=== PATIENT | male | born 1945 ===

== ENCOUNTER 2016-10-07 14:08 | Inpatient (IN) | payer OTHER ==
[~2016-10-07] VITALS: Ht 187.9 cm; Wt 99.8 kg
--- NOTE | ~2016-10-07 | PR ---
[place], [place] PROGRESS NOTE NAME: [id number] #: [id number] ROOM: 310 DOCTOR: FABI RAYA MD BIRTHDATE: [birth year] DOS: 10/10/2016 CHIEF COMPLAINT: "I didn't sleep well last night. I never do." SUMMARY OF THE VISIT: The patient was interviewed as he sat in the dining area, watching television. He engaged readily in conversation. He does still seem to be very flat and blunted and rather matter of fact, he reports that he continues to have ongoing sleep problems with difficulty falling asleep and significant sleep continuity disturbance. Appetite has been fairly good and he denies any medication side effects. MENTAL STATUS: He is alert and oriented with some time gaps. Mood does seem to be depressed. Affect is flat, blunted, and constricted. There is no hypomania or jennifer. There are no auditory or visual hallucinations, delusions or paranoia. Short, intermediate and snf memory are relatively intact. PLAN: I will maintain Remeron at 15 mg at bedtime, consider increasing this to 22.5 mg daily. I will increase Latuda from 40 to 80 mg at bedtime to augment the effectiveness of the Remeron and to further aid sleep and stabilize mood. We will engage in individual and ugarte milieu activity with the ultimate plan to return home when stable. FABI RAYA MD CM:PNTRANS 1102 FABI RAYA MD 10/10/16 1209 interface
--- NOTE | ~2016-10-07 | DS ---
[place], [place] DISCHARGE SUMMARY NAME: SALOME VARGAS [facility] #: [id number] UNIT #: [id number] ROOM: 310 DOCTOR: KATERINE PARSON BIRTHDATE: [birth year] DOS: 10/15/2016 CHIEF COMPLAINT: "I think someone is jerking me around." HISTORY OF PRESENT ILLNESS: He is a 71-year-old male who came into the hospital after he was transferred from [facility] for paranoid and delusional thought. His brother brought him in to [facility] because of those paranoid and delusional thoughts. He believed that people were trying to hurt him in his apartment as well as hurt his dog. He had not been taking care of himself, not doing his activities of daily living, not eating or sleeping well. He lived alone in an apartment and it was found to be in terrible condition. Adult Protective Services were consulted and the belief was that he should be removed from his home. It had been 2 years since he had been at the doctors and he was just not taking care of himself at all at home. PAST MEDICAL HISTORY: Bipolar disorder, anxiety, degenerative joint disease, depression, hypertension, hyperlipidemia, osteoarthritis and schizoaffective disorder. SUMMARY OF HOSPITAL COURSE: On admission, he was started on Invega for his psychosis and Remeron to improve his appetite and sleep as well as treat his underlying depression. Initially, he was noncompliant with his medications, so the Invega was discontinued and he was started on Latuda to augment his Remeron. Since he has been on the unit, he has been eating well. His mood has been euthymic. He has become a little anxious and paranoid since he was not discharged when he initially was supposed to be discharged. His mood has improved since knowing that he is going to be returning to his home. His sleep also improved greatly with titration of the Remeron. He had a Podiatry consult for complaints of pain in his feet and elongated and thick nails and that was treated by Podiatry. MENTAL STATUS AT DISCHARGE: He is alert and oriented. He does have some time gaps. His mood now is euthymic. His affect is appropriate. He has no jennifer or hypomania. He is having no hallucinations, delusions and actually his paranoid and delusional thoughts have improved just with the fact that he is being discharged as he was told. DISPOSITION: He is going to be discharged to home. He was denied by his insurance for a half-way visit. His prescription will be called in to the pharmacy by the nurse on the U Unit. He is being discharged home in psychiatrically stable condition. [place], [place] DISCHARGE SUMMARY NAME: SALOME VARGAS UNIT #: [id number] ROOM: 310 DOCTOR: KATERINE PARSON BIRTHDATE: [birth year] Katerine Parson NP CM:THEODORE [phone] [id number] KATERINE PARSON 10/15/161853 interface
--- NOTE | ~2016-10-07 | PR ---
[place], [place] PROGRESS NOTE [id number] #: [id number] ROOM: 310 DOCTOR: FABI RAYA MD BIRTHDATE: [birth year] DOS: 10/11/2016 INTERVAL NOTE CHIEF COMPLAINT: "I sleep better last night, can I go home soon." SUMMARY OF THE VISIT: The patient was interviewed as he was sitting on the edge of his bed in his room. I later walked him down to the dining area. He engaged readily in conversation and did report that he did sleep better last night. In fact, he states that he slept soundly through the entire night and woke up feeling a little tired, but overall much better. He is very fixated on being able to go home soon and is hopeful that this will happen. He denies depressive symptoms at the present time. There is no jennifer or psychosis noted. MENTAL STATUS: He is alert and oriented with some mild time gaps. Mood does seem to be strongly trending towards euthymia and affect is much more appropriate. There are no symptoms of hypomania or jennifer. There are no auditory or visual hallucinations. No delusions, no paranoia. Memory is relatively intact. PLAN: I will maintain the current dosing of the Latuda and the Remeron. Will continue to engage in individual and ugarte milieu activity with the ultimate plan to return to the least restrictive environment when psychiatrically stable. FABI RAYA MD CM:PNTRANS [id number] FABI RAYA MD 10/11/16 1233 interface
--- NOTE | ~2016-10-07 | CON ---
[place], [place] REPORT OF CONSULTATION NAME: SALOME VARGAS [facility] #: [id number] UNIT #: [id number] ROOM: 310 DOCTOR: SALOME SHELTON DPM BIRTHDATE: [birth year] DOS: 10/08/2016 SUBJECTIVE: The patient is a 71-year-old male. CHIEF COMPLAINT: Elongated painful thickened nails of both feet. PAST MEDICAL HISTORY: Schizoaffective disorder, history of degenerative joint disease, hypertension, hyperlipidemia, osteoarthritis. PHYSICAL EXAMINATION: EXTREMITIES: Lower extremity examination: Pedal pulses diminished both lower extremities, decreased skin temperature. Decreased hair growth, nail thickening, pigmentary discoloration. Temperature changes and edema, bilateral lower extremity, crumbly thickened yellow nails 1 through 5 bilateral foot with incurvated nail borders of bilateral hallux. No signs of infection upon debridement. ASSESSMENT: Peripheral vascular disease onychomycosis, onychocryptosis first toe bilateral. PLAN: Evaluation and management. Debrided nails 1 through 5 bilateral; debrided, incurvated nail borders first toe bilateral. Thank you for kind consultation. SALOME SHELTON DPM CM:CONSTR:REPORT OF CONSULTATION 1502 10/08/16 2159 interface
--- NOTE | ~2016-10-07 | WRIGHTHP ---
[place], [place] PATIENT HISTORY AND PHYSICAL EXAM NAME: SALOME VARGAS [facility] #: [id number] UNIT #: [id number] ROOM: 310 DOCTOR: FABI RAYA MD BIRTHDATE: [birth year] DOS: 10/08/2016 INITIAL PSYCHIATRIC EVALUATION CHIEF COMPLAINT: "I guess I was getting more paranoid." HISTORY OF PRESENT ILLNESS: This is a 71-year-old male who was sent from initially on an involuntary basis, but then was later signed in voluntary by his power of credit cashier who is his brother. The patient had presented there increasingly paranoid and delusional with poor ADLs. He was found in his home in deplorable conditions. He had not been eating well nor has he been sleeping. He has not been attending to his ADLs. He was covered in critical access hospital. He was increasingly paranoid, believing that people were out to get him and was very anxious and on edge. He was very irritable as well while at [place]. He subsequently sent here for further stabilization to rule out organic factors, to engage in individual and ugarte milieu activity, planning then to return to the least restrictive environment when psychiatrically stable. PAST MEDICAL HISTORY: Remarkable for prior psychiatric admission approximately 5 years ago. He also has a history of degenerative joint disease, hypertension, hyperlipidemia, osteoarthritis. MENTAL STATUS EXAMINATION: This morning, the patient is alert and oriented to person and place, but not necessarily time. Mood does seem to be somewhat down and depressed. Affect is flat and blunted with constricted range. He does positively endorse paranoia and even now feels that he is somewhat at risk for harm. He is very, however, anxious to return home. There was no jennifer or hypomania noted. Memory seems relatively intact. DIAGNOSIS: Schizoaffective disorder. PLAN: I have already started him on Invega 6 mg a day. He received the first dose yesterday upon admission to the unit and he will then get his doses in the morning. Given the fact that there does seem to be a depressive component as well, I will start him on Remeron 15 mg at bedtime. We will engage him in individual and ugarte milieu activity. We will determine whether or not he can safely return home or if he needs secondary placement. We will discharge then when stable. [place], [place] PATIENT HISTORY AND PHYSICAL EXAM NAME: SALOME VARGAS UNIT #: [id number] ROOM: [facility] DOCTOR: FABI RAYA MD BIRTHDATE: [birth year] FABI RAYA MD CM:HISPHYS:PATIENT HISTORY AND PHYSICAL EXAMINATION [id number] FABI RAYA MD 10/08/16 1355 interface
--- NOTE | ~2016-10-07 | DS ---
[place], [place] DISCHARGE SUMMARY NAME: SALOME VARGAS [facility] #: [id number] UNIT #: [id number] ROOM: 310 DOCTOR: KATERINE PARSON BIRTHDATE: [birth year] DOS: 10/13/2016 CHIEF COMPLAINT: "I am ready to go home." HISTORY OF PRESENT ILLNESS: He is a 71-year-old male who came in to the hospital when he was transferred from [facility] for being paranoid and having delusional thoughts. He was brought in to [place] by his brother because of his paranoia and delusional thoughts. He believed that people were trying to hurt him in his apartment as well as hurt his dog. He had not been taking care of himself, not doing his ADLs, not eating or sleeping well. The patient does live alone in an apartment with his dog. His house was in horrible condition. Adult Protective Services was consulted when he came in as far as removing him from his thoughts. It had been 2 years since he had seen a doctor and he was just overall generally not taking care of himself. PAST MEDICAL HISTORY: He has a history of bipolar disorder, anxiety, degenerative joint disease, depression, hypertension, hyperlipidemia, osteoarthritis and schizoaffective disorder. SUMMARY OF HOSPITAL COURSE: When he came in to the Behavioral Health Unit, he was started on Invega for his psychosis and Remeron to improve his appetite, sleep and treat his underlying depression. Initially when he was on the unit, he was noncompliant with his medication. The Invega was discontinued and he was started on Latuda to augment his Remeron. He has been eating well. His mood has been euthymic. Affect appropriate. His sleep much improved with titration of the Remeron. While on the unit, he did also have a podiatry consult for complaints of pain in his feet that get elongated nails and that was taking care of while he was on the unit by Podiatry. MENTAL STATUS AT DISCHARGE: He is alert and oriented. He does have some time gaps. Mood is euthymic. Affect is appropriate. There is no jennifer or hypomania. He is having no hallucinations, delusions or paranoia at the time of discharge. DISPOSITION: He will be discharged to a long-term care facility. His prescriptions were printed and will be sent with him on discharge. He is psychiatrically stable. [place], [place] DISCHARGE SUMMARY NAME: SALOME VARGAS UNIT #: [id number] ROOM: 310 DOCTOR: KATERINE PARSON BIRTHDATE: [birth year] Katerine Parson NP CM:DISCHARG [phone] KATERINE PARSON 10/13/162029 interface
[2016-10-07 16:56] VITALS: BP 139/86
--- NOTE | 2016-10-07 18:44 | NUR ---
SALOME VARGAS a 71 year old M admitted via stretcher from the OUTPATIENT as a voluntary admission per poa his bother sangeeta vargas Arrived on unit at 1620. ALLERGIES: dilantin, fish, pinapple. Vital signs are: 97.5-97-18 139/86. The client signed the following forms with stated understanding: Authorization For The Release of Medical Information, Clothing List, Consent to Voluntary Admission and Hospitalization, Consent and Release Forms/Receipt of Rights, Acknowledgement of Advance Directive Information, Behavioral Health Consent Form, and Informed Consent of Medications. Admitted under the services of FABI Keita MD. A search was conducted and hazardous articles were removed. Client was oriented to the unit. STEVEN ALDRIDGE pt came in my ambulance pink slipped from [place]. pt had poa paperwork . dr. aguirre stated to let poa sign pt in voluntary. pt came in irritated, confused, in a hospital gown, pt came in with a watch, and $874.10, and snuff babita patton was putin lockbox. pt demanding to leave , needs to get home with his dogs, pt is dishelved, not attending adl's
[2016-10-07 19:34] VITALS: BP 122/76
--- NOTE | 2016-10-07 19:41 | NUR ---
CALLED RESIDENT NUMBER [phone] PRICE, UPDATED HIM ON LAB WANTING TO KNOW IF IT WAS OKAY TO CHANGE CERTAIN LABS FOR AM SINCE IT IS REQUIRED TO FAST FIRST, DR. PRICE STATED IT WAS OKAY TO CHANGE THEM FOR THE AM, NO OTHER ORDERS RECIEVED.
--- NOTE | 2016-10-07 20:24 | NUR ---
PATIENT REFUSED LABS AT THIS TIME AFTER X3 ATTEMPTS AND EDUCATION, PATIENT STATED HE WILL LET IT BE DONE IN AM. LAB STATED THEY WILL BE BACK IN AM. NO SIGNS OR SYMPTOMS OF DISTRESS NOTED.
--- NOTE | 2016-10-08 01:32 | NUR ---
24 HOUR CHART CHECK COMPLETED.
--- NOTE | 2016-10-08 05:32 | NUR ---
PATIENT OBSERVED ON Q 15 MIN CHECKS TO HAVE SLEPT THROUGHOUT THE NIGHT WITH NO AWAKENINGS. PATIENT CURRENTLY IN ROOM TALKING TO SELF STATING "I JUST WANT TO GO HOME, I DONT WANT TO BE HERE". DURING 1:1 PATIENT STATED THAT HE "FEELS ANXIOUS" AND "I JUST WANT TO GO HOME AND SEE MY DOG LUIS, I DONT LIKE BEING CLOSED UP HERE". PATIENT PROVIDED WITH EMOTIONAL SUPPORT AND ALSO PROVIDED WITH OPTIONS TO HELP RELIEVE ANXIETY INCLUDING PRN MEDICATION, PATIENT STATED "I DONT WANT ANYTHING RIGHT NOW BUT I WILL LET YOU KNOW IF I DO, IM JUST GOING TO LAY IN BED FOR RIGHT NOW". NO OTHER PHYSICAL COMPLAINTS VOICED. CURRENTLY IN BED WITH EYES OPEN, RESPIRATIONS EASY AND REGULAR. NO SIGNS OR SYMPTOMS OF DISTRESS NOTED. WILL MONITOR FOR INCREASED AGITATION AND ANXIETY.
[2016-10-08 07:54] LABS: ALBUMIN 3.7 gm/dl (3.1-4.5); ALKALINE PHOSPHATASE 95 U/L (45-117); BUN 19 mg/dl (7-24); CHLORIDE 107 mmol/L (98-107); CHOLESTEROL 179 mg/dL (<200); HDL CHOLESTEROL 44 mg/dl (40-60); LDL CHOLESTEROL 116 mg/dL (9-159); POTASSIUM 4.1 mmol/L (3.5-5.1); SGOT/AST 38 IU/L (3-35); SGPT/ALT 30 U/L (12-78); SODIUM 141 mmol/L (136-145); TOTAL PROTEIN 7.9 gm/dL (6.4-8.2); TRIGLYCERIDES 94 mg/dl (<150); VLDL CHOLESTEROL 19 mg/dL (6-40)
[2016-10-08 08:00] VITALS: BP 123/74
--- NOTE | 2016-10-08 08:37 | NUR ---
PHYSICAL THERAPY PAtient evaluated on 3, full evaluaion to follow. Continue with PT as pe prlmnaof cre with fall and acute debility precautions., MAy require SNF for impaired mobility versus assisted living wtth PT. PAtient is high complexity via chart review, tests and evaluation : 69566. Thank you for this referral. January Hernandez.,PT
--- NOTE | 2016-10-08 10:41 | NUR ---
DR SHELTON OFFICE NOTIFIED OF NEW CONSULT FOR PODIATRY CONSULT.
--- NOTE | 2016-10-08 11:17 | NUR ---
PT did not attend RT Group/Exercise this morning. PTasked what was planned for group. Staff stated we were starting with mild exercise. PT stated "I get enough exercise walking in the [place]." This staff member tried encouraging PT explaining the benefits of leaving his room and socializing but PT still refused.
--- NOTE | 2016-10-08 12:20 | NUR ---
patient stay has been authorized for 7 days, nr 10/13/16, authorization number is [id number]
--- NOTE | 2016-10-08 13:51 | NUR ---
Attempted to do assessment with PT. PT answered first 2 questions then started halucinatiing. PT talked of people disapearing from his home then reappearing again. PT talked of planes and helicopters flying overhead when his evaluator was there. PT doesnt understand why they are coming around because he doesnt own any computers. PT could not be redirected,ended assessment
--- NOTE | 2016-10-08 14:51 | NUR ---
Kailyn from [employer] returned the SWS p.c. from earlier. She states that she had met pt. once when the "neighbors" had called [employer] because the pt. had been walking around outside early in the morning and late at night, asking them "are you going to hurt me"? Kailyn states that she is in the process of investigating this case and is not sure yet, if pt. home is safe enough for him to return to. Kailyn to call back on Wednesday to discuss further pt. d/c plans with RODOLFO Vasquez. Kailyn further states that the [employer] do not decide whether or not a pt. is safe to return home, but that they would let us know concerns if any of pt. returning to his home environment. Kana and this SWS both agree that if pt. is to return home that he will need In-Home services to help monitor his medications. A referral for both NH and In-Home services to be made. Kailyn states that pt dog is being cared for by his brother and LILIANE.
--- NOTE | 2016-10-08 14:53 | NUR ---
TREATMENT TEAM WAS HELD WITH THE FOLLOWING TO DISCUSS CARE: DR. RAYA, MEDICAL STUDENT, AT, RN, AND SW. WANTS SOMEONE TO CHECK ABOUT PT'S SOG LUIS TO MAKE SURE PT'S BROTHER IS TAKIG CARE OF IT.
--- NOTE | 2016-10-08 14:57 | NUR ---
Kailyn from [employer] did question where the schizoaffective d/o orginated from. She states the only hx of possible [place] she is aware of is that pt. had been hospitalized a few years ago at a [facility] in [place] for a "mental" breakdown. pt. reportedly has no family other than his brother, never been , no children, etc. Kailyn did also state that pt. had discussed with her his feelings of lonliness and feeling depressed.
--- NOTE | 2016-10-08 15:14 | NUR ---
Upon chart review, [facility] did urine, Nurse Smith read the result, urine was negative for UTI.
--- NOTE | 2016-10-08 15:39 | NUR ---
PT did not attend RT Group/Riddles,Choices this afternoon. PT stated he wasnt interested in any activity. This staff tried to encourage PT to join but PT continually refused. PT came in to room where activity was being held about half way through. I asked PT again to join group but again PT stated he was not interested
--- NOTE | 2016-10-08 15:46 | NUR ---
EARL/KELVIN Duque CM REQUESTED THAT CM BE NOTIFIED WHEN A PRE AUTH IS OBTAINED PRIOR TO ADMISSION. SW INFORMED THAT DIRECTOR SENT OUT AN EMIAL INFORMING STAFF OF THIS. RODOLFO WILL INFORM MARLINE THAT IT WAS NOT DONE.
--- NOTE | 2016-10-08 18:21 | NUR ---
PATIETN IS ALERT TO PERSON AND PLACE, ABLE TO VOICE NEEDS. SHORT TERM MEMORY DEFICITS NOTED. MOOD IS ANXIOUS AND IRRATIBLE AT TIMES. THOUGHT PROCESS IS CONFUSED WITH PARANOIA. WORRIED THAT SOMETHING IS GOING TO HAPPEN TO HIS FAMILY AND PET DOG. ISOLATIVE AT TIMES. AMBULATORY THOROUGHOUT THE UNIT. VERBAL CUEING WITH DRESSING AND GROOMING. CONTINENT OF BOWEL AND BLADDER. DENIES ANY HALLUCINATION AND DELUSION, PAIN OR DISCOMFORT. MEDICATION COMPLIANT. Q 15 MINUTE SAFETY CHECKS.
[2016-10-08 20:20] VITALS: BP 160/76
--- NOTE | 2016-10-09 03:17 | NUR ---
PT UP AND DOWN OUT OF BED, RESTLESS, YELLING AT UNSEEN OTHERS AT THE WINDOW. PT PACING HALLWAYS. 1:1 INEFFECTIVE AT THIS TIME. PRN ATIVAN GIVEN PER ORDER. WILL MONITOR FOR EFFECTIVENESS OF MEDICATION.
--- NOTE | 2016-10-09 04:17 | NUR ---
PRN EFFECTIVE. PT LYING IN BED RESTING QUIETLY WITH EYES CLOSED.
--- NOTE | 2016-10-09 04:36 | NUR ---
24 HR chart check completed.
--- NOTE | 2016-10-09 06:00 | NUR ---
PT SLEPT PAST 0401. MEDICATION COMPLIANT. NO S/S OF DISTRESS NOTED. NO C/O PAIN. PT IS RESTING AT THIS TIME WITH EYES CLOSED. PRN REMAINS EFFECTIVE. WILL CONTINUE TO MONITOR PT FOR EFFECTIVENESS OF MEDICATION AND WILL REASSESS PT BEHAVIOR WHEN AWAKE. SEE [facility] FLOWSHEET FOR SPECIFIC MONITORING.
--- NOTE | 2016-10-09 09:28 | NUR ---
TREATMENT TEAM WAS HELD TO DISCUSS CARE WITH THE FOLLOWIG: DR. RAYA,NURSE PRACTIONER, MEDICAL STUDENT, AT, RN, AND SW. DR. RAYA IS RECOMMENDING A SENIOR CARE OR ASSISTED LIVING. PENDING DISCHARGE NEXT WEEK.
--- NOTE | 2016-10-09 11:10 | NUR ---
PT was in room during RT Goup/Discussion but refused to participate. PT sat off on his own and colored pictures. PT was encouraged to join in on goals and discussion and PT stated he doesnt do stuff like that
--- NOTE | 2016-10-09 11:15 | NUR ---
PHYSICAL THERAPY Collin seen this AM 1:1 for her therapy gait. Pt was up in the day room said he would try. Transfer sit/stand CGA X 1, gait total 145' X 1, no LOB and verbal cueing for gait, balance safety and MIN RADIATOR REPAIRER X 1. Pt wanting to go back to his room and lay down at this time, treatment time 15 min. DEBBY LOPEZ BLACK TOP RAKER.
--- NOTE | 2016-10-09 11:46 | NUR ---
PT ENCOURAGED TO MAKE STAFF AWARE BEFORE URINATING SO THAT WE CAN COLLECT A SPECIMEN.
--- NOTE | 2016-10-09 14:35 | NUR ---
PT was in room for awhile during RT Group/games. PT refuse to join us in a game of [employer] PT choose to sit at another table and color. Tried to encourage PT to sit at the same table as we were but PT refused. PT is not social with anyone. PT is withdrawn from others and will only speak when spoken to.
--- NOTE | 2016-10-09 16:07 | NUR ---
PT AGAIN REMINDED TO MAKE STAFF AWARE WHEN HE NEEDS TO URINATE IN ORDER TO COLLECT URINE SPECIMEN.
[2016-10-09 17:43] LABS: BILIRUBIN NEGATIVE (NEGATIVE); BLOOD TRACE-LYSED (NEGATIVE); CLARITY SL CLOUDY (CLEAR); COLOR YELLOW (YELLOW); GLUCOSE NEGATIVE (NEGATIVE); KETONE NEGATIVE (NEGATIVE); LEUKO ESTERASE NEGATIVE (NEGATIVE); NITRITE NEGATIVE (NEGATIVE); SPECIFIC GRAVITY >= 1.030 (1.005-1.030); UROBILINOGEN 0.2 E.U./dl (0.2-1.0)
[2016-10-09 17:52] LABS: BACTERIA 2+
--- NOTE | 2016-10-09 18:30 | NUR ---
PT'S BEHAVIOR THIS SHIFT HAS BEEN FOR THE MOST PART CALM AND COOPERATIVE. HIS DEMEANOR IS ISOLATIVE AND WITHDRAWN. PATIENT BECAME IRRITABLE AND AGITATED WHEN HIS AND SON VISITED TODAY DEMANDING THAT THEY TAKE HIM HOME. PT'S FAMILY MEMBERS SPOKE WITH ALONZO (FARM EQUIPMENT OPERATOR) REGARDING DISCHARGE PLANS BEFORE THEY LEFT THEIR VISIT. AFTER THE VISIT, PT BECAME CALM AND ISOLATIVE AGAIN. MANY PROMPTS NEEDED TO GET PATIENT TO PROVIDE THIS RN WITH A URINE SPECIMEN BUT HE ULTIMATELY DID PROVIDE THIS RN WITH THE URINE NEEDED TO TEST. PT SHOWED NO OVERT SIGNS OR SYMPTOMS OF DELUSIONS AND HALLUCINATION THIS SHIFT. HIS APPETITE HAS BEEN GOOD. PT DOES NOT INITIATE COVERSATIONS WITH PEERS OR STAFF BUT IS ABLE TO MAKE HIS NEEDS KNOWN.
[2016-10-09 20:00] VITALS: BP 152/59
--- NOTE | 2016-10-09 21:33 | NUR ---
UPON ATTEMPTING TO ADMINISTER PT PM MEDICATIONS, NURSE NOTICED THAT PATIENT HAD REMOVED HIS ID BAND. PT BEGAN BECOMING DEFENSIVE, LINE OF QUESTIONING IMMEDIATELY STOPPED. PT RETURNED TO ROOM HURRIDLY. NURSE ALLOWED FOR PATIENT TO COLLECT HIS THOUGHTS AND DESCALATE. NURSE SAT DOWN WITH PATIENT AND ASKED HIM WHAT WAS BOTHERING HIM. PT BEGAN DESCRIBING TO NURSE PERSECUTORY DELUSIONS OF THE GOVERNMENT BEING OUT TO GET HIM. HE SEES VISIONS OF SOMEONE WITH AN IDENTICAL TRUCK COMMITTING CRIMES, HIS NEIGHBORS DISSAPEARING, AND HELICOPTER DOING ROUNDS OVER HIS HOUSE. ATTEMPTED TO REORIENT PATIENT DISCUSSING HOW HIS DELUSIONS AREN'T BASED IN REALITY. PT ABLE TO DESCALATE AND VERBALIZED LIMITED UNDERSTANDING REGARDING THE DELUSIONAL THOUGHT PROCESSES.
--- NOTE | 2016-10-10 04:59 | NUR ---
PT EXHIBITED INCREASE IN DELUSIONAL THOUGHT PROCESSES FROM PREVIOUSLY REPORTED SHIFT. PT ABLE TO DESCALATE HIMSELF WHEN HIS DELUSIONS BECAME OVERWHELMING. PT DENIES SI/HI. PT DENIES ACTIVE HALLUCINATIONS/VOICES SPEAKING TO HIM. PT MEDICATION COMPLIANT. REFER TO FLOWSHEET FOR ADDITIONAL INFO.
--- NOTE | 2016-10-10 06:12 | NUR ---
PT SLEPT >8HRS WITH NO INTERRUPTIONS
[2016-10-10 08:04] VITALS: BP 126/63
--- NOTE | 2016-10-10 17:34 | NUR ---
Collin has been noted to exhibit some paranoia and suspiciousness of others. He stated during 1:1 interaction with staff that he thinks "people are trying to set me up." Not receptive to reality orientation @ this time. He also voiced some paranoid ideations when he found a hat in the bathroom for a peer. When explanation was provided, he was unreceptive and voiced paranoid ideas that others were again, "setting me up." Mood has been noted to be depressed with some underlying anger noted. Noted talking to himself @ times when walking in hallway. Appetite is good. Energy level is moderate. Though he is noted to be generally limited in conversation with peers, he was observed speaking to a peer during meal time this evening. Dr. Chery in to see him today and orders were received to increase Latuda to 80 mg po q hs. Refer to [facility] flowsheet for specific monitoring.
[2016-10-10 20:19] VITALS: BP 148/50
--- NOTE | 2016-10-11 03:32 | NUR ---
24HR CHART CHECK COMPLETE
--- NOTE | 2016-10-11 05:25 | NUR ---
PT SLEPT >8HRS WITH NO INTERUPTIONS DURING THIS SHIFT. PT DENIED ANY HALLUCINATIONS/DELUSIONS, SI/HI. REPORTED HAVING A BETTER DAY, YET WAS RELUCTANT TO EXPAND UPON WHAT MADE THE DAY "BETTER". MEDICATION COMPLIANT. REFER TO FLOWSHEET FOR ADDITIONAL INFO.
[2016-10-11 08:15] VITALS: BP 128/73
--- NOTE | 2016-10-11 19:07 | NUR ---
Mood is depressed. Continues to exhibit some suspiciousness of staff and continues to voice a belief that others are out to "set me up." He is not receptive to reality orientation. Collin generally keeps to himself and offers little interaction with others. He denies any sensory disturbances when questioned. Energy level low to moderate and appetite is good. No complaints voiced. Refer to [facility] flowsheet for specific monitoring.
[2016-10-11 20:00] VITALS: BP 148/70
--- NOTE | 2016-10-11 22:04 | NUR ---
P-#1-- SCHIZOAFFECTIVE DISORDER--PARANOIA I- DISCUSS COPING SKILLS, DISCUSSED DAYS EVENTS, MEDICATE PER ORDERS P- NO PARANOIA CLIENT UP IN DININGROOM WATCHING TV DURING SNACKS. STATES DAY WAS GOOD AND DENIED ANY PROBLEMS AT THAT TIME. MEDICATION COMPLIANT GAIT STEADY
--- NOTE | 2016-10-12 04:14 | NUR ---
24 HR chart check completed.
[2016-10-12 06:54] VITALS: BP 135/58
--- NOTE | 2016-10-12 07:55 | NUR ---
PHYSICAL THERAPY Pt seen this AM 1:1 for his therapy session, Pt was up in the day room and talked into his treatment. Transfer sit/stand CG X 1, no LOB. Followed by gait total 125' X 1, CG X 1, no LOB and said thats all did not want to do any more. Pt back up in ther day room for his breakfast, treatment time 14 min. DEBBY LOPEZ FISHER TERRAPIN.
--- NOTE | 2016-10-12 09:20 | NUR ---
TATE JONES CNP ON UNIT TO SEE PATIENT.
--- NOTE | 2016-10-12 09:45 | NUR ---
TATE JONES PUBLIC WORKS LABORER HERE TO SEE PT AT THIS TIME. UPDATE GIVEN.
--- NOTE | 2016-10-12 10:17 | NUR ---
Treatment Team was held to discuss care with the following: Dr. Chery, EN, AT, and SW. Placement for Pt. [facility] completed referrals made on Wednesday to facilities. RODOLFO will check with Mai to see if there is a bed and if they accepted Patient. PT WANTS TO RETURN HOME.
--- NOTE | 2016-10-12 11:22 | NUR ---
PT did not attend RT Group/Reminiscing. PT continues to refuse when AT encourages to join. PT will come into room to color during group but will not participate. PT does not care if group would be enjoyable, or benificial for him. He states "I just want out of here."
[2016-10-12 12:18] LABS: BASO % 0.5 % (0.0-1.0); EOS # 0.1 10*3/uL (0.0-0.4); HEMATOCRIT 48.1 % (42.0-52.0); HEMOGLOBIN 16.2 g/dl (14.0-18.0); LYMPH # 1.5 10*3/uL (1.3-4.4); LYMPH % 17.3 % (27.0-41.0); MEAN CELL VOLUME 90.6 fl (80.0-94.0); MEAN CORPUSCULAR HGB 30.5 pg (27.0-31.0); MEAN CORPUSCULAR HGB CONC 33.7 g/dl (33.0-37.0); MEAN PLATELET VOLUME 9.8 fl (9.6-12.3); MONO # 0.7 10*3/uL (0.1-1.0); NEUT # 6.1 10*3/uL (2.3-7.9); PLATELET COUNT AUTOMATED 218 10*3/uL (130-400); RED BLOOD COUNT 5.31 10*6/uL (4.50-5.90); RED CELL DISTRI WIDTH 13.3 % (0-14.5); WHITE BLOOD COUNT 8.4 10*3/uL (4.8-10.8)
[2016-10-12 12:40] LABS: ALBUMIN 3.7 gm/dl (3.1-4.5); ALKALINE PHOSPHATASE 97 U/L (45-117); BUN 21 mg/dl (7-24); CHLORIDE 106 mmol/L (98-107); POTASSIUM 4.9 mmol/L (3.5-5.1); SGOT/AST 26 IU/L (3-35); SGPT/ALT 32 U/L (12-78); SODIUM 141 mmol/L (136-145); TOTAL PROTEIN 8.1 gm/dL (6.4-8.2)
--- NOTE | 2016-10-12 15:34 | NUR ---
PT did not attend RT Group/Card game this afternoon. PT refuses to join in when asked. PT likes to sit and color
--- NOTE | 2016-10-12 17:48 | NUR ---
PATIENT IS ALERT AND ORIENTED TO PERSON, PLACE WITH PERIODS OF CONFUSION. ABLE TO VOICE NEEDS, MOOD IS HOPELESSNESS/HELPLESSNESS. WORRIES ABOUT HIS FAMILY. CAN BE PARANOID AND ISOLATIVE AT TIMES. VERABL CUEING WITH ACTIVITES OF DAILY LIVING. AMBULATES WITH STEADY GAIT. MEAL INTAKES ARE GOOD WITH ADEQUATE FLUIDS. CONTINENT OF BOWEL AND BLADDER. DENIES ANY HALLUCINATIONS, DELUSIONS, HI/SI. NO COMPLAINTS OF PAIN OR DISCOMFORT. MEDICATION COMPLIANT. Q 15 MINUTE SAFETY CHECKS MAINTIANED.
[2016-10-12 20:11] VITALS: BP 150/62
--- NOTE | 2016-10-12 20:55 | NUR ---
SW RECEIVED PASRR RESULTS FROM [email or web address]. PT APPROVED FOR [facility] PLACEMENT. COPY ON CHART.
--- NOTE | 2016-10-12 20:56 | NUR ---
JEFFREY FROM [facility]. [facility] REPORTING NO BEDS AND PT COULD BE PLACED ON WAITING LIST. ANDREA FROM [facility] REPORTING NO BEDS PROBABLY AT LEAST 4 -6 WEEKS.
--- NOTE | 2016-10-12 21:00 | NUR ---
RADIAL PULSE 64. NO S/S OF DISTRESS NOTED. NO C/O PAIN.
--- NOTE | 2016-10-13 02:55 | NUR ---
B: PARINOIA, AGRESSIVE BEHAVIOR. PT PACING HALLS AND SEARCHING DINING ROOM VOICING FRUSTRATION "I HAVENT SEEN THE DOCTOR IN 8 DAYS STRAIGHT" I: PRESENT REALITY, REDIRECT AND PROVIDED 1-1 R: PT VISIBLY CALMER INFORMED THAT THE DOCTOR WOULD BE ROUNDING AT 8 AM AND WOULD BE ABLE TO TALK TO HIM AT THAT TIME. PT UNABLE TO VOICE SPECIFIC TOPICS THAT NEEDED TO BE DISCUSEED WITH MD. P: CONTINUE TO PROVIDE 1-1, PRESENT REALITY, ADMINISTER AND EDUCATE ON MEDICATIONS, TEACH AND ENFORCE COPING SKILLS WITH PT
--- NOTE | 2016-10-13 04:28 | NUR ---
24 HR chart check completed.
[2016-10-13 06:30] LABS: BASO % 0.5 % (0.0-1.0); EOS # 0.1 10*3/uL (0.0-0.4); EOS % 1.7 % (1.0-4.0); HEMATOCRIT 44.1 % (42.0-52.0); HEMOGLOBIN 14.6 g/dl (14.0-18.0); LYMPH # 1.5 10*3/uL (1.3-4.4); LYMPH % 19.1 % (27.0-41.0); MEAN CELL VOLUME 89.1 fl (80.0-94.0); MEAN CORPUSCULAR HGB 29.5 pg (27.0-31.0); MEAN CORPUSCULAR HGB CONC 33.1 g/dl (33.0-37.0); MEAN PLATELET VOLUME 10.1 fl (9.6-12.3); MONO # 0.8 10*3/uL (0.1-1.0); MONO % 10.3 % (3.0-9.0); NEUT # 5.2 10*3/uL (2.3-7.9); PLATELET COUNT AUTOMATED 192 10*3/uL (130-400); RED BLOOD COUNT 4.95 10*6/uL (4.50-5.90); RED CELL DISTRI WIDTH 13.2 % (0-14.5); WHITE BLOOD COUNT 7.7 10*3/uL (4.8-10.8)
--- NOTE | 2016-10-13 06:41 | NUR ---
PT SLPET APPROXIMATELY 5 HOURS INTERRUPTED. NO C/O PAIN. NO S/S OF DISTRESS NOTED. SEE [facility] FLOWSHEET FOR SPECIFIC MONITORING.
[2016-10-13 07:02] LABS: ALBUMIN 3.1 gm/dl (3.1-4.5); ALKALINE PHOSPHATASE 78 U/L (45-117); BUN 21 mg/dl (7-24); CHLORIDE 107 mmol/L (98-107); CREATININE 1.02 mg/dL (0.70-1.30); POTASSIUM 4.1 mmol/L (3.5-5.1); SGOT/AST 22 IU/L (3-35); SGPT/ALT 30 U/L (12-78); SODIUM 141 mmol/L (136-145); TOTAL PROTEIN 6.8 gm/dL (6.4-8.2)
[2016-10-13 07:54] VITALS: BP 143/62
--- NOTE | 2016-10-13 07:59 | NUR ---
PHYSICAL THERAPY Collin seen this AM 1:1 for his therapy session and had to be talked into his gait. Each transfer from sit to stand with supervision X 1, no LOB. Gait 100' X 4, with sitting rest after each 100' gait, with just CG X 1, no LOB, just needed talked into his gait. Pt up in the day room at this time for his breakfast, treatment time 25 min. DEBBY LOPEZ PRINCIPAL GIFTS OFFICER.
[2016-10-13] MEDS ORDERED: LATU80TA PO (08:49)
[2016-10-13] MEDS ORDERED: MIRTAZAPINE45 MG PO (08:49)
--- NOTE | 2016-10-13 11:16 | NUR ---
PHYSICAL THERAPY CO-SIGN I approve of the Phyical Therapy notes written above. ZEB SHERIFF PT
--- NOTE | 2016-10-13 11:36 | NUR ---
PT did not attend RT Grou/Coloring with talking and reminiscing. AT asked PT to join group and PT stated " I dont believe so." AT encouraged PT to join but again PT stated he didnt believe so
--- NOTE | 2016-10-13 13:20 | NUR ---
PT was in room during RT Group/Coloring Talking and Reminiscing but refused to participate. When asking PT if he had a goal for today PT refused to answer. PT left the room a short time later
--- NOTE | 2016-10-13 14:44 | NUR ---
PATIENT IS ALERT AND ORIENT TO PERSON AND PLACE WITH CONFUSION. ABLE TO VOICE NEEDS. MOOD IS ANXIOUS AT TIMES. THOUGHT PROCESS IS CONFUSED AND PARANIOA AT TIMES THROUGHTOUT THE DAY. DENIES ANY HALLUCINATIONS, DELUSIONS, HI/SI OR PAIN. NO RESPONSE TO INTERNAL STIMULI. APPETITE IS GOOD WITH ADEQUATE FLUIDS. MORE INDEPENDANT WITH ACTIVITIES OF DAILY LIVING. AMBULATORY WITH STEADY GAIT. CONTINENT OF BOWEL AND BLADDER. MEDICATION COMPLIANT. Q 15 MINUTES SAFETY CHECKS MAINTAINED.
--- NOTE | 2016-10-13 15:37 | NUR ---
PT again refused to attend RT Group/Coloring (PTs chose this again). PT will sit in room during group but refuse to join in. PT sitting off by himself during this group,mumbling to himself. PT refused to talk to AT
--- NOTE | 2016-10-13 18:21 | NUR ---
RODOLFO spoke with LJ Goetz and updated on Pt's condition. RODOLFO informed of pending discharge for today to [facility] then to Assisted Living facility.
[2016-10-13 19:55] VITALS: BP 150/64
--- NOTE | 2016-10-13 22:03 | NUR ---
B- INCREASED ANXIETY RELATEDS TO BELIEVING HER WAS GOING HOME TODAY I- PT REDIRECTED TO QUIET ROOM, 1:1 PROVIDED R- PT DEESCALATED SELF P - REDIRECT TO QUIET ROOM OR PT ROOM TO DEESCALATE SELF AND PROVIDE 1:1
--- NOTE | 2016-10-14 04:49 | NUR ---
PT SLEPT GREATER THAN 8 HOURS THIS SHIFT. NO S/S OF DISTRESS. NO C/O PAIN. SEE [facility] FLOWSHEET FOR SPECIFIC MONITORING. Q15 MINUTE SAFETY CHECKS MAINTAINED.
--- NOTE | 2016-10-14 05:59 | NUR ---
24 HR chart check completed.
[2016-10-14 08:35] VITALS: BP 145/55
--- NOTE | 2016-10-14 10:25 | NUR ---
PT moved to ICU this morning prior to 7:30
--- NOTE | 2016-10-14 10:29 | NUR ---
PT did not attend RT Group this morning. PT was laying on his bed and AT attempted to encourage PT to join group PT refused.
--- NOTE | 2016-10-14 10:52 | NUR ---
[facility] from [facility] that the pre-cert. is still not back from [employer].
--- NOTE | 2016-10-14 12:40 | NUR ---
PHYSICAL THERAPY Back this PM to felicita Polanco for his therapy treatment. All transfers were supervision X 1, no LOB. Gait total 280' supervision X 1, no LOB. Followed by working in gait balance, 360 turn, gait backwards, right and left side stepping, stop/start gait with MIN CRM MARKETING SPECIALIST X 1, no LOB. Pt back up in the day room treatment time 25 min. DEBBY LOPEZ PTA.
--- NOTE | 2016-10-14 17:10 | NUR ---
PATIENT HAS BEEN VOICING PARANOID DELUSIONS ABOUT THE "GOVERNMENT IS COMING FOR ME. THEY HAVE IT OUT FOR ME." REALITY PRESENTED WITH FAIR EFFECT FOR SHORT PERIODS OF TIME. MOOD IS DEPRESSED WITH SPORADIC EPISODE OF IRRITABILITY. ST/LT MEMORY DEFICITS NOTED. NO OVERT HALLUCINATIONS NOTED. MEDICATION COMPLIANT WITHOUT DIFFICULTY. MAINTAINED Q15 MIN OBSERVATION CHECKS PER ORDERS. APPETITE GOOD FOR MEALS. TAKING FLUIDS WELL. LIMITED INTERACTIONS WITH PEERS WHILE UP IN THE DINNING ROOM T/O THE SHIFT.
--- NOTE | 2016-10-14 17:18 | NUR ---
PATIENT HAS BEEN OBSERVED RESPONDING TO INTERNAL STIMULI THIS EVENING WHILE EATING DINNER.
--- NOTE | 2016-10-14 17:19 | NUR ---
APPETITE GOOD THIS SHIFT. TAKING FLUIDS WELL.
--- NOTE | 2016-10-14 17:28 | NUR ---
TREATMENT TEAMS WAS HELD WITH THE FOLLOWIG: TOY GARCIA, RN, AT, SW, AND MEDICAL STUDENT. PT TO BE DISCHARGED WHEN PRE-CERT IS BACK FROM [facility].
--- NOTE | 2016-10-14 17:30 | NUR ---
RODOLFO TEXTED [facility] TIMES ABOUT WHETHER PRE-CERT WAS BACK FROM [facility]. REPLIES WERE NOT YET.
--- NOTE | 2016-10-14 17:32 | NUR ---
RODOLFO RECEIVED REUQEST FOR PASRR TO BE FAXED TO [facility] BY ELLYN JIMENEZ. RODOLFO FAXED PASRR TO [facility] AGAIN.
[2016-10-14 20:32] VITALS: BP 148/72
--- NOTE | 2016-10-14 21:50 | NUR ---
CLIENT RESTING IN BED AT THIS TIME. VOICES NO COMPLAINTS OF PAIN OR DISCOMFORT AT THIS TIME
--- NOTE | 2016-10-15 04:14 | NUR ---
24 HR chart check completed.
--- NOTE | 2016-10-15 06:47 | NUR ---
CLIENT SLEPT GREATER THAN EIGHT HOURS THROUGHOUT SHIFT
[2016-10-15 07:59] VITALS: BP 134/60
[2016-10-15] MEDS ORDERED: Vitamin D PO (09:01)
[2016-10-15] MEDS ORDERED: MIRTAZAPINE45 MG PO (09:04)
--- NOTE | 2016-10-15 11:16 | NUR ---
Day Care Worker Note: Follow-up appointments made with [facility] at [facility] for 11/04/16 @ 2:30pm, and with Dr. Farzana Mcmanus, his family physician, [address] [place] [address], [place] [address] on 10/22/16 @ 1:30pm. I cannot, at this time, find a Home Health Provider for the patient. [facility] and [facility] do not go to his town, [facility] and [facility] do not accept his [employer] insurance. No working phone number for Psychiatric Health Services.
--- NOTE | 2016-10-15 12:41 | NUR ---
PT did not attend RT Group/Games. PT was in and out of the room numerous times during group. AT asked and encouraged PT to join several times but PT refused each time,at one time stating "Nah,everyone is against me."
--- NOTE | 2016-10-15 13:52 | NUR ---
PHYSICAL THERAPY Patient is progressing towards goals. Continue with origianl POC and goals. DAte of 10/30/16. January Duffy,PT
[2016-10-15] MEDS ORDERED: VITAMIN E200 UNI1 PO (15:07)
--- NOTE | 2016-10-15 15:13 | NUR ---
MADE AWARE PT WILL BE DISCHARGE TO HOME IN CARE OF BROTHER AROUND 5PM TODAY.
--- NOTE | 2016-10-15 15:19 | NUR ---
SWS spoke with pt niece Radha because her dad, evangelista was over at pt's house cleaning it up for pt. to return home this evening. Evangelista will be up to get pt and return him home around 5pm. Nurse and SW notified. SWS spoke with Collin in regards to leaving at 5pm. SWS also spoke with Kailyn of [employer] in regards to pt returning home. Kailyn states that they did their investigation and closed their case because pt. was hospitalized. If pt. returns home and starts having issues again, they will re-open the case if needed.
--- NOTE | 2016-10-15 15:33 | NUR ---
ELEONORA PARSON,ARIANNE STATES OK TO CALL IN MEDICATIONS TO PT PHARMACY SINCE PT IS NOW GOING HOME INSTEAD OF SNF. POA CONTACTED, STATES [facility]. [facility] FOR VITAMIN E, VITAMIN D, REMERON, AND LATUDA CALLED IN.
--- NOTE | 2016-10-15 15:42 | NUR ---
Pt refused to attend RT Group/Painting. PT was encouraged to join but PT stated he hates painting.
--- NOTE | 2016-10-15 16:58 | NUR ---
PATIENT IS ALERT AND ORIENTED WITH PERIODS OF CONFUSION. MOOD IS STABLE THIS SHIFT. DENIES ANY SENSORY DISTURBANCES AND NONE ARE NOTED. APPETITE GOOD FOR MEALS. MEDICATION COMPLIANT WITHOUT DIFFICULTY. LIMITED INTERACTIONS WITH PEERS. COOPERATIVE WITH STAFF. HAS BEEN VOICING HIS WISHES TO LEAVE ALL SHIFT. POA AND FAMILY IN AT THIS TIME FOR DISCHARGE. Discharge instructions reviewed with patient/family. Patient/POA receptive and verbalizes understanding. Follow-up care arranged. Written instructions given to patient/POA. ALL BELONGINGS AND PERSONAL ITEMS SENT WITH PT. LOCK BOX ITEMS INCLUDING MONEY AND WATCH RETURNED TO PT. GIDEON CLAROS
--- NOTE | 2016-10-15 17:05 | NUR ---
PT DISCHARGED AT THIS TIME BY W/C IN CARE OF POA AND OTHER FAMILY MEMBER VIA PRIVATE VEHICLE, ESCORTED TO MAIN VEHICLE BY
--- NOTE | 2016-10-15 17:34 | NUR ---
TELEVISION WRITER: PATIENT DISCHARGE INFORMATION AND PATIENT STAY SUMMARY WERE FAXED TO [facility], AND DR. OATES AT THE [facility] OFFICE. BOTH FAXES WERE SENT AND CONFIRMED
--- NOTE | 2016-10-15 17:41 | NUR ---
SW WAS NOTIFIED BY TEXT FROM FIONA TRAY EARL THAT PRECERT WAS BDENIED BY [employer]. SW NOTIFIED rn AND orientor OF DENIAL.
--- NOTE | 2016-10-15 17:42 | NUR ---
SW SPOKE WITH BROTHER/POA PHUC. SW WILL ARRANGE FOLLOW UP APPOINTMENTS WITH DR. NEWMAN AND [facility]. SW WILL TRY TO FIND A HOME HEALTH AGENCY TO EDUCATE AND [facility] BUT MOST DO NOT THIAGO EPT'S INSURANCE. PT WILL BE UP AROUND 3 PM TO HIMS MANAGER PT.
--- NOTE | 2016-10-15 17:43 | NUR ---
SW GAVE UNIT COORDIANO INFORMATION ON FOLLOW UP APPOINTMENTS TO BE MADE.
--- NOTE | 2016-10-15 17:44 | NUR ---
RODOLFO REVIEWED DISCHARGE PAPERWORK WITH RAN. PHUC STATED THAT HE THOUGHT PT HAD MEDICIAD. PT WILL HAVE HIS DTR CHECK AND SEE IN PT'S WALET. RODOLFO WILL HAVE dR. [facility] OFFICE MAKE REFERRAL FOR IN HOME SERVICES. PHUC AND FAMILY LOOKING AT GETTING PT A PLACE CLOSER TO THEM SO THEY CAN WATCH HIM. PT DISCHARGED HOME WITH BROTHER PHUC.
--- NOTE | 2016-10-15 17:47 | NUR ---
TREATMENT TEAM WAS HELD WITH THE FOLLOWING: CORTEZ DOAN, MEDICAL STUDENT , RN, AT, AND SWs. PT CAN BE DISCHARGED WHEN PRECERT IS BACK FROM [facility].
--- NOTE | 2016-10-16 08:30 | NUR ---
PHYSICAL THERAPY CO-SIGN I approve of the Phyical Therapy notes written above. ZEB SHERIFF PT
== END 2016-10-15 17:07 | disposition home or self-care (01) | DRG 885 ==
LOC: 3N 14:08
PROVIDERS: Family Medicine; Registered Nurse; ADMIT Psychiatry & Neurology Psychiatry
DX: F25.9 Schizoaffective disorder, unspecified (principal); N17.0 Acute kidney failure with tubular necrosis; M19.90 Unspecified osteoarthritis, unspecified site; I10 Essential (primary) hypertension; E78.5 Hyperlipidemia, unspecified; F31.9 Bipolar disorder, unspecified; L60.0 Ingrowing nail; F41.9 Anxiety disorder, unspecified; I73.9 Peripheral vascular disease, unspecified; B35.1 Tinea unguium; Z88.8 Allergy status to other drugs, medicaments and biological substances; Z91.013 Allergy to seafood; Z91.018 Allergy to other foods; Z91.14 Patient's other noncompliance with medication regimen

== ENCOUNTER 2019-11-12 13:13 | Inpatient (IN) | payer OTHER ==
[~2019-11-12] VITALS: Ht 185.4 cm; Wt 89.8 kg
[~2019-11-12 13:13] MED LIST: LATU80TA PO; MIRTAZAPINE45 MG PO; VITAMIN E200 UNI1 PO; Vitamin D PO
[2019-11-12 13:27] VITALS: BP 148/88
--- NOTE | 2019-11-12 13:30 | NUR ---
DIRECT LINE OF SIGHT TO ROOM 3 IS ACCOMPLISHED BOTH FROM DESK TO ROOM AND ALSO VIA CAMERA, NOW TURNED ON.
--- NOTE | 2019-11-12 13:50 | NUR ---
PT IS SPEAKING LOUDLY WITH FAMILY MEMBER WHO STATES THIS IS BASELINE. PT DID PROVIDE URINE SPECIMENS. HE REQUESTS TO REMAIN CLOTHED UNTIL ARRIVAL ON INPATIENT UNIT. FAMILY REMAINS AT BEDSIDE. LABS ORDERED THEN AN EXPEDITED ADMISSION PER DR CLAYTON.
[2019-11-12 13:57] LABS: BILIRUBIN Negative; BLOOD Negative (NEGATIVE); CLARITY Clear (CLEAR); COLOR Yellow (YELLOW); GLUCOSE Negative; KETONE Negative; LEUKO ESTERASE Negative (NEGATIVE); NITRITE Negative (NEGATIVE); SPECIFIC GRAVITY < 1.005 (1.001-1.030); UROBILINOGEN 0.2 E.U./dl (0.0-1.0)
[2019-11-12 14:02] LABS: BASO # 0.1 10*3/uL (0.0-0.1); BASO % 0.5 % (0.0-1.0); EOS # 0.1 10*3/uL (0.0-0.4); EOS % 0.7 % (1.0-4.0); HEMATOCRIT 43.9 % (42.0-52.0); LYMPH # 1.7 10*3/uL (1.3-4.4); LYMPH % 16.8 % (27.0-41.0); MEAN CELL VOLUME 87.6 fl (80.0-94.0); MEAN CORPUSCULAR HGB 28.9 pg (27.0-31.0); MEAN PLATELET VOLUME 9.7 fl (9.6-12.3); MONO # 0.7 10*3/uL (0.1-1.0); NEUT # 7.4 10*3/uL (2.3-7.9); NEUT % 74.7 % (47.0-73.0); PLATELET COUNT AUTOMATED 259 10*3/uL (130-400); RED BLOOD COUNT 5.01 10*6/uL (4.50-5.90); RED CELL DISTRI WIDTH 13.1 % (0-14.5); WHITE BLOOD COUNT 9.9 10*3/uL (4.8-10.8)
[2019-11-12 14:03] LABS: URINE AMPHETAMINES < 1000 (1000ng/ml); URINE BARBITURATES < 200 (200ng/ml); URINE BENZODIAZEPINES < 200 (200ng/ml); URINE CANNABINOIDS (THC) < 50 (50ng/ml); URINE COCAINE < 300 (300ng/ml); URINE METHADONE < 300 (300ng/ml); URINE OPIATES < 300 (300ng/ml)
[2019-11-12 14:04] LABS: URINE PHENCYCLIDINE < 25 (25ng/ml)
[2019-11-12 14:14] LABS: EPITHELIAL CELLS 0-2; RBC 0-2 rbc/hpf (0-2); WBC 0-2 wbc/hpf (0-5)
[2019-11-12 14:18] LABS: ALBUMIN 3.8 gm/dl (3.1-4.5); ALKALINE PHOSPHATASE 94 U/L (45-117); BUN 13 mg/dl (7-24); CHLORIDE 111 mmol/L (98-107); CREATININE 1.09 mg/dL (0.70-1.30); SGOT/AST 32 IU/L (3-35); SGPT/ALT 29 U/L (12-78); SODIUM 139 mmol/L (136-145); TOTAL PROTEIN 7.9 gm/dL (6.4-8.2)
--- NOTE | 2019-11-12 15:00 | NUR ---
NURSE REPORT TO NEHEMIAS BEARDEN, FOR CONTINUATION OF CARE.
--- NOTE | 2019-11-12 16:01 | NUR ---
REPORT GIVEN TO SOHAIL FROM [facility].
--- NOTE | 2019-11-12 16:43 | NUR ---
[facility] HERE AT THIS TIME FOR PATIENT TO BE TAKEN TO U WITH SECURITY.
--- NOTE | 2019-11-12 16:44 | NUR ---
REPORT GIVEN TO [facility] NURSE.
--- NOTE | 2019-11-12 16:45 | NUR ---
MARINASALOME GURROLA a 74 year old M admitted via wheel chair from the ADMITTING as a voluntary admission. Arrived on unit at 1645. ALLERGIES: FISH, DILANTIN, PINEAPPLE. Vital signs are: [id number] 150/60. The client signed the following forms with stated understanding: Authorization For The Release of Medical Information, Clothing List, Consent to Voluntary Admission and Hospitalization, Consent and Release Forms/Receipt of Rights, Acknowledgement of Advance Directive Information, Behavioral Health Consent Form, and Informed Consent of Medications. Admitted under the services of Dr. ELVER URBINA,[facility]. A search was conducted and hazardous articles were removed. Client was oriented to the unit. SOHAIL CASAREZ
[2019-11-12] MEDS ORDERED: AMLODIPINE BESY10 MG PO (17:06)
[2019-11-12] MEDS ORDERED: LATU40TA PO (17:07)
[2019-11-12] MEDS ORDERED: METOPROLOL SUCC25 M2 PO (17:08)
[2019-11-12] MEDS ORDERED: ISOSORBIDE MONO10 MG PO (17:09)
[2019-11-12] MEDS ORDERED: COGENTIN0.5 MG PO (17:10)
[2019-11-12] MEDS ORDERED: FINASTERIDE5 M1 PO (17:11)
--- NOTE | 2019-11-12 17:22 | NUR ---
DR. RIDLEY NOTIFIED OF NEW ADMISSION, MEDICATIONS AND DIAGNOSIS UPDATED FOR REVIEW. PATIENT WILL BE UNDER THE CARE OF DR. YU.
[2019-11-12 17:27] VITALS: BP 150/60
[2019-11-12 17:40] VITALS: BP 150/60
--- NOTE | 2019-11-12 18:40 | NUR ---
NASAL SWAB COLLECTED FOR COVID 19, TOLERATED WELL AND SENT TO LAB.
[2019-11-12 20:00] VITALS: BP 150/62
--- NOTE | 2019-11-12 21:55 | NUR ---
ISOLATIVE TO ROOM. REFUSES TO CHANGE CLOTHING OR ALLOW ME TO CHECK SKIN. +EPS NOTED WITH TONGUE. TREMORS NOTED IN HANDS. MOVES SELF WELL. REFUSES ASSISTANCE WITH REPOSITIONING. MEDICATION COMPLIANT. DR CHIN REMINDED EARLIER OF MEDICAL MEDICATIONS NEEDING ORDERED
--- NOTE | 2019-11-13 01:24 | NUR ---
CAME OUT OF ROOM AGGITTATED AND AGGRESSIVE. WANTS TO GO HOME OR AT LEAST GO OUT AND GET SOME AIR. HAS NO REMEMERANCE OF LAST NIGHT. DENIES SIGNING IN AND SAYS IT IS NOT HIS SIGNATURE. ABLE TO DEESCALATE HIM AT THIS TIME. PO FLUIDS PROVIDED. CLIENT STATES TONGUE MOVEMENT IS DUE TO BEING THIRSTY. BACK TO ROOM AT THIS TIME
--- NOTE | 2019-11-13 02:32 | NUR ---
INCREASED AGGITATION,, LOOKING FOR A DOG HE JUST SAW IN THE ROOM. TRYING TO MOVE FURNATURE AROUND. UNABLE TO DE ESCALATE SITUATION. ATIVAN 1MG IM GIVEN LEFT DELTOID. CLIENT THREATENED IF WE EVER GAVE HIM A SHOT AGAIN HE'D :TAKE YOU OUT". REFUSED OFFER OF PO MEDICATION. CONTINUES WITH NAME CALLING AND YELLING HE WANTS OUT. WILL CONTINUE TO MONITOR Q15 MIN AND PRN
--- NOTE | 2019-11-13 03:39 | NUR ---
24 HR chart check completed.
--- NOTE | 2019-11-13 06:50 | NUR ---
CONTINUES TO HALLUCINATE HE IS THROWING BALL TO DOG AND THEN EATING. SPEECH SLURRED AND GARBLED. MOVES ALL EXTREMETIES.
[2019-11-13 06:53] LABS: THYROID STIM HORMONE (HS) 2.93 uIU/ml (0.358-4.75)
[2019-11-13 07:55] LABS: VITAMIN D, 25-HYDROXY 35.1 ng/mL (30-100)
[2019-11-13 08:00] VITALS: BP 142/68
--- NOTE | 2019-11-13 08:00 | NUR ---
Patient sitting quietly in dining area with peers, with no c/o discomfort. Respirations easy and regular. Vital signs stable. No overt distress. RADHA MCKEON
--- NOTE | 2019-11-13 08:30 | NUR ---
DR. LOPEZ ON UNIT TO ASSESS PATIENT.
--- NOTE | 2019-11-13 09:00 | NUR ---
Treatment Plan meeting was held this a.m. with Dr. Chery, ARIANNE Blair, RN, AT, ARCHITECTURE FACULTY MEMBER-S and Barrel Bander. Plan for discharge Next week. At this point Plan is for Pt. to return home with family.
--- NOTE | 2019-11-13 10:28 | NUR ---
SPEECH PATHOLOGY Nursing screen completed. This dept. will be available for consult as needed. SPARKLE SMITH MSCCC-BEEF SPECIALIST
--- NOTE | 2019-11-13 13:43 | NUR ---
pt observed to be in dining area with peers having apparent visual hallucinations. pt pointing at floor to unseen objects. pt also yelling in apparent fright that he is falling out of chair; however, pt is seated safely. slurred, garbled speech. pt presented with reality, provided with emotional support and therapeutic 1:1 in attempts to redirect and calm pt. medications administered per orders. pt is unreceptive to reality presentation. pt does appear to calm with 1:1 interaction. pt is able to follow verbal cues. medication compliant without difficulty. will continue to present reality and redirect as appropriate. will continue to provide emotional support as appropriate. will continue to administer medications and encourage pt to verbalize internal thought processes as they occur. q15 min monitoring per policy for safety.
--- NOTE | 2019-11-13 14:52 | NUR ---
This automotive service writer met with pt in an attempt to complete psychosocial assessment. Unfortunately, this METAL BENCH PATTERNMAKER-S is unable to understand pt's speech as it is garbled and slurred. Pt did glance in an opposite direction from this automotive service writer and speak as if at something. It is possible that pt may have been hallucinating but because this automotive service writer cannot understand pt's words, this could not be confirmed. Left a voicemail message for Madhuri Avila, pt's niece, requesting a return call to gather further pt information.
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
--- NOTE | 2019-11-13 15:32 | NUR ---
Nursing screen received and chart reviewed. Patient was admitted to [facility] with schizophrenia and h/o CVA. He was able to ambulate with assistance but recently he has neglected his ADLs d/t his psychological dysfunction. Patient may benefit from OT referral to assist in determining d/c needs. Thank you. Afshan aVlentine OTR/L
--- NOTE | 2019-11-13 15:38 | NUR ---
PHYSICAL THERAPY Nursing screen received and chart reviewed. Patient was admitted to [facility] with schizophrenia and h/o CVA. Please order PT evaluation if decline in functional status presents past baseline. Thank you. Viridiana Loera,PT,DPT
--- NOTE | 2019-11-13 15:41 | NUR ---
PM GROUP PT DID NOT ATTEND AFTERNOON GROUP THERAPY. PT WAS IN BED RESTING.
--- NOTE | 2019-11-13 18:39 | NUR ---
Shift chart check completed.
[2019-11-13 20:00] VITALS: BP 136/54
--- NOTE | 2019-11-13 21:58 | NUR ---
24 HR chart check completed.
--- NOTE | 2019-11-13 22:18 | NUR ---
P-RESPONDING TO INTERNAL STIMULI. CONFUSED. I-PROVIDED REORIENTATION, AND REDIRECTION. MEDICATION ADMINISTERED PER PHYSICIANS ORDERS. R-ACCEPTED REORIENTATION, REDIRECTION AND MEDICATION COMPLIANT. P-WILL CONTINUE TO MONITOR FOR HALLUCINATIONS, MOODS AND BEHAVIORS.
--- NOTE | 2019-11-14 01:23 | NUR ---
PRN ATIVAN 1MG PO GIVEN AT THIS TIME FOR ANXIETY, RESTLESSNESS. PT HALLUCINATING, ARGUING WITH UNSEEN OTHERS. ATTEMPTS TO SWING AT UNSEEN OTHERS. STAFF ATTEMPTED TO RESPOSITION PT AND PROVIDE 1:1 INEFFECTIVE.
--- NOTE | 2019-11-14 02:30 | NUR ---
PRN ATIVAN EFFECTIVE PT RESTING COMFORTABLY AT THIS TIME.
--- NOTE | 2019-11-14 05:15 | NUR ---
PT SLEPT 1 HOUR, RESTLESS THROUGHOUT NIGHT, RESTING COMFORTABLY AT THIS TIME.
[2019-11-14 08:00] VITALS: BP 156/81
--- NOTE | 2019-11-14 08:30 | NUR ---
Treatment Plan meeting was held this a.m. with Dr. Chery, ARIANNE Blair, RN, AT, CONTRACT WRITER-S and Line Up Examiner in attendance. Plan for discharge Next Week. Pt. will return home at discharge.
--- NOTE | 2019-11-14 08:32 | NUR ---
DR LOPEZ ON UNIT TO ASSESS PATIENT, UPDATE PROVIDED.
[2019-11-14 10:23] LABS: BASO % 0.2 % (0.0-1.0); EOS % 0.2 % (1.0-4.0); LYMPH # 1.2 10*3/uL (1.3-4.4); LYMPH % 8.5 % (27.0-41.0); MEAN CORPUSCULAR HGB 29.2 pg (27.0-31.0); MEAN CORPUSCULAR HGB CONC 32.5 g/dl (33.0-37.0); MEAN PLATELET VOLUME 10.2 fl (9.6-12.3); NEUT # 11.5 10*3/uL (2.3-7.9); NEUT % 83.8 % (47.0-73.0); PLATELET COUNT AUTOMATED 248 10*3/uL (130-400); RED CELL DISTRI WIDTH 13.2 % (0-14.5); WHITE BLOOD COUNT 13.7 10*3/uL (4.8-10.8)
[2019-11-14 10:29] LABS: MEAN CELL VOLUME 89.8 fl (80.0-94.0)
[2019-11-14 10:47] LABS: ALBUMIN 3.6 gm/dl (3.1-4.5); ALKALINE PHOSPHATASE 106 U/L (45-117); BUN 24 mg/dl (7-24); CHLORIDE 109 mmol/L (98-107); CREATININE 1.18 mg/dL (0.70-1.30); POTASSIUM 3.9 mmol/L (3.5-5.1); SGOT/AST 44 IU/L (3-35); SGPT/ALT 30 U/L (12-78); SODIUM 141 mmol/L (136-145); TOTAL PROTEIN 7.7 gm/dL (6.4-8.2)
--- NOTE | 2019-11-14 11:54 | NUR ---
AM GROUP PT WAS PRESENT FOR MORNING GROUP THERAPY SEATED UPRIGHT IN A RICH CHAIR WITH A MAGAZINE ON THE TRAY. PT WAS TALKING TO AND SWINGING AT UNSEEN OTHERS AND WAS BETWEEN AGITATION AND NAPPING. PT IS VERY HARD TO UNDERSTAND BUT WHEN SPOKEN TO WAS LOOKING RIGHT THRU ME. PT WAS NOTED TO BE HAVING JERKING MOVEMENTS IN HIS UPPER BODY BUT ONLY OCCASIONALLY.
[2019-11-14 13:35] LABS: BILIRUBIN Negative; BLOOD Negative (Negative); CLARITY Clear (Clear); COLOR Yellow (Yellow); GLUCOSE Negative; KETONE Trace; LEUKO ESTERASE Negative (Negative); MUCOUS TRACE; NITRITE Negative (Negative); PH 5.5 (4.5-8.0); RBC 0-2 rbc/hpf (0-2); WBC 0-2 wbc/hpf (0-5)
--- NOTE | 2019-11-14 13:48 | NUR ---
Observed pt this AM sitting in kenneth-chair with tray on. Pt appeared to be actively hallucinating. Pt was restless and making arm movements as if he wanted to punch with his fist. Pt's speech remains garbled. Pt was speaking but it was not understandable. Attempted to make eye contact with pt while speaking to him. Pt would not acknowledge this group underwriter as pt continued to react to internal stimuli.
--- NOTE | 2019-11-14 15:47 | NUR ---
PM GROUP PT DID NOT ATTEND AFTERNOON GROUP THERAPY. PT WAS IN BED RESTING.
[2019-11-14 19:46] VITALS: BP 140/51
--- NOTE | 2019-11-14 21:17 | NUR ---
24 HR chart check completed.
--- NOTE | 2019-11-14 23:40 | NUR ---
P- RESTLESS. HALLUCINATIONS. I-PROVIDED REPOSITIONING, 1:1 EMOTIONAL SUPPORT. UNABLE TO ASSESS DUE TO INAPPROPRIATE RESPONSES. PROVIDED REORIENTATION AND REDIRECTION. R-MEDICATION COMPLIANT. ALERT TO PERSON ONLY. ACCEPTED REORIENTATION AND REDIRECTION. 2 ASSIST FOR ADLS. RESTING IN BED AT THIS TIME. P-WILL CONTINUE TO MONITOR FOR HALLUCINATIONS, MOOD AND BEHAVIORS.
--- NOTE | 2019-11-15 06:01 | NUR ---
PT SLEPT 6 HOURS OF INTERMITTENT SLEEP. Q 15 MIN CHECKS MAINTAINED.
[2019-11-15 07:50] VITALS: BP 146/69
--- NOTE | 2019-11-15 08:59 | NUR ---
DR LOPEZ ON UNIT TO ASSESS PATIENT, UPDATE PROVIDED.
--- NOTE | 2019-11-15 11:45 | NUR ---
AM GROUP PT WAS PRESENT FOR MORNING GROUP THERAPY SITTING AT A TABLE IN A RICH CHAIR DRINKING A BEVERAGE. PT WAS SPOKEN TO BUT DID NOT RESPOND. LATER PT WAS NOTED TO BE TRYING TO GET UP AND WAS ASKED IF HE NEED HELP? PT WAS MORE EASILY UNDERSTANDABLE IN HIS SPEECH COMPARED TO YESTERDAY BUT PT CONVERSATION WAS NOT IN CONTEXT OR ON TOPIC. PT WAS LOOKING FOR "THE BLACK GLOVES HE WAS WEARING A MINUTE AGO"
--- NOTE | 2019-11-15 13:15 | NUR ---
P: VISUAL HALLUCINATIONS. RESTLESS, ANXIOUS, CONFUSED. I: ONE ON ONE FOR EMOTIONAL SUPPORT. PROVIDE SPACE NEEDED. ENCOURAGE PATIENT TO VERBALIZE FEELINGS. R: EFFECTIVE. PATIENT TALKED TO THIS NURSE THIS MORNING AND DENIES SADNESS AND DEPRESSION AND ALSO DENIES SI/HI. PATIENT IS EXPERIENCING VISUAL HALLUCINATIONS, HE IS RESTLESS, ANXIOUS AND CONFUSED. PATIENT BELIEVES THAT HIS BROTHER IS HERE. PATIENT IS ALERT TO SELF ONLY. PATIENT THEN DECIDED NOT TO TALK TO ME ANY LONGER. HE DID NOT ANSWER ANY MORE QUESTIONS AND DID NOT PARTICIPATE ANY LONGER. PATIENT BECAME ISOLATIVE/WITHDRAWN. PATIENT IS A SET UP FOR MEALS. INTAKES ARE GOOD WITH ADEQUATE FLUID. PATIENT IS A 2 ASSIST WITH TRANSFERS AND ACTIVITIES OF DAILY LIVING. PATIENT USES GERICHAIR. PATIENT CONTINENT OF BLADDER. PATIENT IS MEDICATION COMPLIANT WITH EDUCATION. PATIENT DID PARTICIPATE IN GROUP ACTIVITIES. P: WILL CONTNUE TO MONITOR BEHAVIORS/MOOD. ENCOURAGE PATIENT TO PARTICIPATE IN GROUP ACTIVITIES AND SOCIALIZE WITH OTHERS. ENCOURAGE MEDICATION COMPLIANCE. Q15 MINUTE SAFETY CHECKS MAINTAINED.
--- NOTE | 2019-11-15 15:05 | NUR ---
Pt was more alert this afternoon while sitting in a xavier-chair by a table. Pt's speech has improved from garbled which could not be understood to a less garbled speech with pt pronouncing some words correctly. Pt was understandable when he stated, "I know there's something wrong with me." Pt was slightly restless and displaying EPS symptoms.
--- NOTE | 2019-11-15 15:06 | NUR ---
PHYSICAL THERAPY Physical Therapy evaluation completed on U with full evaluation to follow. Recommend physical therapy per plan of care and SNF upon discharge. Thank you for this referral. Sergei Walls SPT Viridiana Loera PT,DPT
--- NOTE | 2019-11-15 15:44 | NUR ---
PM GROUP PT WAS PRESENT AT THE START OF AFTERNOON GROUP THERAPY BUT WAS HALLUCINATING AND TRYING TO TEAR HIS DEPENDS OFF. PT WAS TAKEN IN THE HALLWAY TO BE HELPED BY NURSE AND MHW.
--- NOTE | 2019-11-15 15:55 | NUR ---
Occupational Therapy evaluation completed on 3 with full eval to follow. Precautions include impaired cognition,significant balance, weakness in BUEs,incoordination/impaired motor planning BUE, high complexity level 15787. Recommend OT per POC and SNF to enable return home with family assist at OF. Thank you for this referral. Afshan Valentine OTr/L
[2019-11-15 19:44] VITALS: BP 148/78
--- NOTE | 2019-11-15 20:31 | NUR ---
24 HR chart check completed.
--- NOTE | 2019-11-15 23:57 | NUR ---
P- RESTLESS/ANXIOUS. I-ALERT AND OREINTED X3. ASSESSED FOR HALLUCINATIONS, DELUSIONS AND/OR PARANOIA. MEDICATION ADMINISTERED PER PHYSICIAN'S ORDERS. ASSISTED WITH ADL CARE NEEDED. R-PT NOTED RESPONDING TO INTERNAL STIMULI. PT CALLING OUT FOR HIS DOG LUIS, PT REPORTS, "HE IS A BLACK AND WHITE [place] TERRIER." MEDICATION COMPLIANT. P-WILL CONTINUE TO MONITOR FOR AH/VH. MOODS AND BEHAVIORS.
--- NOTE | 2019-11-16 05:40 | NUR ---
PT WITH ZERO HOURS OF SLEEP. PT RESTLESS MOST OF NIGHT.
--- NOTE | 2019-11-16 07:45 | NUR ---
PHYSICAL THERAPY Patient seen this am for therapy visit and was sitting up in activity room Whitney chair upon therapist arrival. Patient identified by name / and was joined by OT administrative assistant data entry for observation this session. Patient was pleasant, voicing repeated "mumbling" responses to therapist commands, while transfering sit to stand at handrail, MIN A x 2. Patient tolerated < 1 minute static stand each trial, demonstrating increased B knee flexion and buckling episode of L knee. Patient also ambulated CLEARING DISTRIBUTION CLERK/MIN, with single handrail support, 10'x 1, demonstrating "shuffling" gait pattern with L side lean. Patient fatigues quickly, needing Whitney chair follow and returned to activity room with lap tray, body alarm, under [facility] staff Supervision. Will continue per POC as tolerated, total treatment time 14 minutes. Holland Lozano, DIRECT CARE PROVIDER
[2019-11-16 07:48] VITALS: BP 131/70
--- NOTE | 2019-11-16 07:50 | NUR ---
OT NOTE Prior to OT session therapist called U and talked to nurse Agnieszka to get permission to treat pt. WAX MOLDER and nursing both present for observation only. Upon arrival pt was sitting in xavier chair in dining irby agreeable to 25 minute OT session. Identified by name and date of with no complaints. Pt wheeled to hallway hand rail completeing 2 sit-stands both at Yoni x2, tolerating approx 20 seconds before sitting. Third sit-stand Yoni, taking 5 steps down irby while holding on to hand baird at Yoni due to left lateral lean.Pt tolerated approx 40 seconds before sitting. Pt was taken back to the dining irby where his breakfast tray had arrived. Pt required maxA for set up of tray. Pt attempted self feeding with use of R hand and utensils. However pt was unable to grasp the fork resulting in finger feeding. Pt was provided with a built up for his utensils, pt was then able to maintain grasp with SBA. Pt declined any more food at this time resulting in being unable to assess use of built up. Drinks were managed with CGA and use of two handled sippy cup. Pt was left sitting upright in the xavier chair with alarm active, lap tray in place, and under MHW supervision. Continue with POC as able. XU Lew/ONEYDA Piedra/Kelly
--- NOTE | 2019-11-16 09:00 | NUR ---
Treatment Plan meeting was held this a.m. with Dr. Chery, RN, AT, HOSIERY REPAIRER-S and Barrel Endshaker Adjuster in attendance. Plan for discharge Next Week. Pt. will return home at discharge.
--- NOTE | 2019-11-16 11:56 | NUR ---
AM GROUP PT WAS PRESENT FOR MORNING GROUP THERAPY SEATED IN A RICH CHAIR. PT WAS AGITATED AND STRUGGLING WITH THE TRAY. PT SPEECH WAS HARD TO UNDERSTAND AND PT APPEARED TO BE SPEAKING TO UNSEEN OTHERS. PT WAS DISTRACTABLE FOR ONLY A FEW SECONDS.
--- NOTE | 2019-11-16 12:42 | NUR ---
PT OBSERVED TO BE POCKETING LARGE AMOUNTS OF FOOD, REFUSING TO SWALLOW OR SPIT OUT. PT COUGHING AT TIMES. PT FINALLY SWALLOWED FOOD WITH MUCH ENCOURAGEMENT FROM STAFF. SPEECH THERAPY CONSULT ORDERED AND DIET DOWNGRADED TO PUREED AT THIS TIME. WILL CONTINUE TO MONITOR.
--- NOTE | 2019-11-16 15:45 | NUR ---
PM GROUP PT DID NOT ATTEND AFTERNOON GROUP THERAPY. PT WAS IN A QUIET ROOM RESTING.
[2019-11-16 19:57] VITALS: BP 126/72
--- NOTE | 2019-11-16 21:51 | NUR ---
Patient alert to person only with confusion noted. Mood calm,cooperative with slight underlyng irritability noted. Patient seen reaching for unseen objects. Patient compliant with HS medications without any difficulty. Attempted to provide 1:1 for emotional support but patient refused. Redirected/reoriented when needed. Plan to continue to encourage medication compliance. Also continue to offer emotional support and continue to redirect/reorient when needed/appropriate. Will continue to monitor for moods/behaviors. See [facility] flowsheet for further documentation.
--- NOTE | 2019-11-17 00:20 | NUR ---
24 HR chart check completed.
--- NOTE | 2019-11-17 05:41 | NUR ---
Patient slept approx. 6.5 hours throughout shift. Q 15 minute safety checks continued and maintained.
--- NOTE | 2019-11-17 07:25 | NUR ---
PHYSICAL THERAPY Patient seen this am for therapy visit and was in bed upon therapist arrival. Patient identified by name / as patient needed multiple v/c's to focus on task as he was a little anxious this morning, not wanting to get up for breakfast. OT office manager executive assistant was also present for observation as patient transfers supine to sit EOB with MAX A x 2. Patient c/o of B LE pain during transfer, however unable to rate on 0-10 pain scale. Patient performed several sit to stand transfers, RELIABILITY TECHNICIAN/MOD A first attempt and MIN/RELIABILITY TECHNICIAN x 2 second attempt. Patient completed SPT to Whitney chair, RELIABILITY TECHNICIAN/MOD A x 2 and was able to take 2-3 side steps to left for positioning prior to sitting down. Patient remained in Whitney chair with body alarm under [facility] staff Supervision awaiting breakfast in activity room. Will continue per POC as tolerated, total treatment time 14 minutes. Holland Lozano, INDUSTRIAL ORGANIZATIONAL PSYCHOLOGIST
--- NOTE | 2019-11-17 07:30 | NUR ---
OT NOTE Prior to visit therapist called U and talked to nurse Dugan to get permission to treat pt. EXECUTIVE CREATIVE DIRECTOR and nursing both present for observation only. Upon arrival pt was laying supine in bed agreeable to 25 minute PT session. Identified by name and date of from wrist band with no complaints. Transfer supine to EOB maxA x2 with p+ balance when sitting EOB due to retrograde posture and right later lean requiring modA to correct. ModA to era t-shirt over arms and head. maxA x2 to doff soiled brief and era hospital pants and clean brief. Sit-stand from EOB modA x2. stand pivot to xavier chair maxA x2. Pt wheeled to dining irby with body alarm and tray table attached with MHW present. Continue with POC when able. XU Lew/ONEYDA Piedra/Kelly
[2019-11-17 07:41] VITALS: BP 136/73
--- NOTE | 2019-11-17 08:51 | NUR ---
SPEECH PATHOLOGY Cinical swallowing evaluation completed as per orders due to pocketing food. Medical history is significant for change in mental status, CVA and major depressive disorder. Patient's diet was recently downgraded to puree due to pocketing and spitting out food. Patient was seen this am. He was sitting upright in a chair in activity room with peers. Patient was attempting to feed himself using adaptive utensils. Despite this, he was having difficulty with self feeding but became agitated when clinican attempted to assist him. He tolerated pureed foods but expressed dislike of the food. He took thin liquid in large sips and displayed coughing post swallow. This was brought to his attention and he was encouraged to take smaller sips, with no cough post swallow. Since patient was drinking fluids and spilling them all over him, clinician placed his liquid in a cup with a lid and small opening, to reduce spillage and limit amounts. Patient did well with liquids in this manner. Recommend he remain on puree and thin liquids. Recommend patient be monitored during meals, to provide cues as needed to take small amounts. Follow up therapy is recommended to ensure safe tolerance of meals. Results and crissy. were shared with patient's nurse who verbalized understanding. Refer to report in [email or web address] for further information. Thank you for this referral. SPARKLE SMITH MSCCC-ICU MANAGER
--- NOTE | 2019-11-17 09:00 | NUR ---
Treatment Plan meeting was held this a.m. with Dr. Chery via telephone, ARIANNE Blair RN, ELECTRIC LIFT TRUCK DRIVER-S and Planning Director in attendance. Plan for discharge Next Week. Plan is for Pt. to return home with family but PASRR will be completed if Pt. would require Higher Level of Care.
--- NOTE | 2019-11-17 09:41 | NUR ---
ON UNIT TO SEE PT AT THIS TIME.
--- NOTE | 2019-11-17 14:40 | NUR ---
PHYSICAL THERAPY CO-SIGN I approve of the Physical Therapy notes written above. Angie Pope PT
[2019-11-17 20:00] VITALS: BP 123/54
--- NOTE | 2019-11-18 03:43 | NUR ---
P-AGITATED, CONFUSION I-REDIRECTION WITH 1:1 THERAPEUTIC INTERVENTIONS AND PRESENT REALITY. EDUCATE AND ENCOURAGE MEDICATION COMPLIANCE R-PATIENT MEDICATION COMPLIANT AT HS. PATIENT PROVIDED NOURISHMENT AND FLUIDS AT HS. PATIENT ISOLATIVE IN DINING AREA WITH PEERS AND NURSING STAFF. PATIENT AGITATED WITH HANDS ON CARE. PATIENT WITH GARBLED SPEECH. PATIENT ATTEMPTING TO CLIMB OUT OF BED WITHOUT ASSISTANCE. PATIENT REDIRECTED IN BED WITHOUT DIFFICULTY AT THIS TIME. PATIENT WITH NO HALLUCINATIONS OR DELUSIONS. PATIENT WITH NO HOMICIDAL OR SUICIDAL IDEATIONS. P-CONTINUE TO ENCOURAGE MEDICATION COMPLIANCE, CONTINUE TO PRESENT REALITY, ENCOURAGE GROUP THERAPY WHILE AWAKE
--- NOTE | 2019-11-18 06:26 | NUR ---
PATIENT SLEPT 4 HOURS OF INTERRUPTED SLEEP THROUGHOUT SHIFT. Q 15 MINUTE CHECKS MAINTAINED. 24 HR chart check completed.
[2019-11-18 07:58] VITALS: BP 131/64
--- NOTE | 2019-11-18 09:10 | NUR ---
DR LOPEZ ON UNIT TO ASSESS PT, UPDATE PROVIDED.
--- NOTE | 2019-11-18 13:44 | NUR ---
P: PT IRRITABLE WITH STAFF. PT RESTLESS AT TIMES. I: PROVIDE EMOTIONAL SUPPORT AND 1:1 FOR PT TO VOICE FEELINGS, ENCOURAGE MED COMPLIANCE AND PROVIDE MED EDUCATION, PROVIDE DIVERSIONAL ACTIVITIES R: PT ALERT TO PERSON AND PLACE, WHEN ASKED THE YEAR, PT STATED "I FORGET." PT MED COMPLIANT WITHOUT DIFFICULTY, MED EDUCATION PROVIDED. PT CONTINUES TO BE RESTLESS AND IRRITABLE. WHEN OFFERED DIVERSIONAL ACTIVITES PT REFUSES STATES "I DON'T LIKE TO DO NOTHING." NO HALLUCINATIONS OR DELUSIONS NOTED. WHEN ASKED IF HAING SUICIDAL THOUGHTS, PT STATED "NOT NO MORE", PT VERBALLY CONTRACTS FOR SAFETY IF SUCH THOUGHTS ARISE. PT UP TO A GERCHAIR REQUIRING 2-3 STAFF ASSIST FOR TRANSFERS AND CARE. PT INCONTINENT OF BOWEL AND BLADDER, CARE PROVIDED NEEDED. P: MONITOR PT BEHAVIORS ON Q15 MIN SAFETY CHECKS, ENCOURAGE MED COMPLIANCE AND PROVIDE MED EDUCATION, PROVIDE EMOTIONAL SUPPORT AND 1:1 FOR PT TO VOICE FEELINGS, CONTINUE TO PROVIDE DIVERSIONAL ACTIVITIES, AND ENCOURAGE GROUP PARTICIPATION AND SOCIALIZATION.
--- NOTE | 2019-11-18 17:45 | NUR ---
PT STATED TO STAFF MEMBER "DON'T YOU SEE THERE'S BUGS IN MY VEINS". STAFF ATTEMPTED TO RE-ORIENT AND PRESENT REALITY WITHOUT SUCCESS. PT BECOMES ARUGEMENTATIVE WITH REDIRECTION. WILL CONTINUE TO MONITOR PT BEHAVIORS.
[2019-11-18 20:00] VITALS: BP 129/78
--- NOTE | 2019-11-19 01:24 | NUR ---
P-CONFUSION, HALLUCINATIONS I-REDIRECTION WITH 1:1 THERAPEUTIC INTERVENTIONS AND PRESENT REALITY. EDUCATE AND ENCOURAGE MEDICATION COMPLIANCE R-PATIENT MEDICATION COMPLIANT AT HS. PATIENT REFUSED NOURISHMENT BUT PROVIDED FLUIDS AT HS. PATIENT ISOLATIVE IN DINING AREA WITH PEERS AND NURSING STAFF. PATIENT AGITATED WITH HANDS ON CARE. PATIENT WITH GARBLED SPEECH. PATIENT HAVING VISUAL HALLUCINATIONS ABOUT BUGS ON HIS ARMS AND SEEING BUGS ON THE HOWARD. ATTEMPTS TO EXPLAIN THAT BUGS WERE NOT ON PATIENT ARMS OF THE HOWARD WAS UNSUCCESSFUL. PATIENT PICKING AND HITTING BILATERAL UPPER EXTREMITIES WITH BELIEF THAT BUGS WERE CRAWLING ON ARMS. PATIENT WITH NO HOMICIDAL OR SUICIDAL IDEATIONS. P-CONTINUE TO ENCOURAGE MEDICATION COMPLIANCE, CONTINUE TO PRESENT REALITY, ENCOURAGE GROUP THERAPY WHILE AWAKE
--- NOTE | 2019-11-19 06:52 | NUR ---
PATIENT SLEPT 6 HOURS INTERRUPTED SLEEP THROUGHOUT SHIFT. Q 15 MINUTE CHECKS MAINTAINED. 24 HR chart check completed.
[2019-11-19 07:40] VITALS: BP 153/76
--- NOTE | 2019-11-19 09:05 | NUR ---
DR LOPEZ ON UNIT TO ASSESS PATIENT, UPDATE PROVIDED.
--- NOTE | 2019-11-19 15:35 | NUR ---
PT STATING BUGS ARE COMING OUT OF HIS NOSE AND PLACED DRIED NASAL MUCOUS ON THE TABLE AND ATTEMPTED TO FLICK IT AT THIS NURSE. WHEN THIS NURSE MOVED AWAY THE PATIENT STATED THATS RIGHT GO AHEAD AND RUN. PT THEN STATED HE HAS BUGS IN HIS HAIR. THIS NURSE ASKED THE PT IF I COULD LOOK IN HIS HAIR AND PT STATED THEY WENT INTO HIS SCALP. PT NOT RECEPTIVE TO REORIENTATION AND REDIRECTION. WILL REAPPROACH THE PT AFTER HE CALMS DOWN.
--- NOTE | 2019-11-19 16:39 | NUR ---
P: VISUAL AND TACTILE HALLUCINATIONS I: PROVIDE EMOTIONAL SUPPORT AND 1:1 FOR THERAPEUTIC COMMUNICATION, ENCOURAGE MED COMPLIANCE AND PROVIDE MED EDUCATION, R: PT ALERT TO PERSON AND PLACE, WHEN ASKED THE YEAR, PT STATED "I CANT REMEMBER THAT STUFF." PT MED COMPLIANT WITHOUT DIFFICULTY, MED EDUCATION PROVIDED. PT CONTINUES TO BE RESTLESS AND IRRITABLE. PT UP TO A GERCHAIR REQUIRING 2-3 STAFF ASSIST FOR TRANSFERS AND CARE. PT INCONTINENT OF BOWEL AND BLADDER, CARE PROVIDED NEEDED. P: MONITOR PT BEHAVIORS ON Q15 MIN SAFETY CHECKS, ENCOURAGE MED COMPLIANCE AND PROVIDE MED EDUCATION, PROVIDE EMOTIONAL SUPPORT AND 1:1 FOR THERAPEUTIC COMMUNICATION, CONTINUE TO PROVIDE DIVERSIONAL ACTIVITIES, AND ENCOURAGE GROUP PARTICIPATION AND SOCIALIZATION.
--- NOTE | 2019-11-19 16:50 | NUR ---
PT CONTINUES TO YELL OUT REGARDING BUGS COMING OUT OF HIS SKIN. PT PULLING AT A MOLE ON HIS LFA. ATTEMPTED TO REDIRECT AND REORIENT PT AND PT WAS NOT RECEPTIVE. PRN ATIVAN GIVEN AT THIS TIME. WILL MONITOR EFFECTIVENESS OF MEDICATION.
--- NOTE | 2019-11-19 19:47 | NUR ---
PT AGITATED, YELLING OUT, BANGING ON FURNITURE, AND SWEARING. REDIRECTION INEFFECTIVE, ALL NON-PHARMACOLOGICAL INTERVENTIONS INEFFECTIVE. PRN GEODON 10MG IM GIVEN AT THIS TIME. WILL MONITOR MOOD AND BEHAVIOR.
[2019-11-19 20:00] VITALS: BP 103/51
--- NOTE | 2019-11-19 20:47 | NUR ---
PRN GEODON 10MG IM SOMEWHAT EFFECTIVE. PT HAVING INTERMITTENT RESTLESS EPISODES, OCCASIONALLY BAMGIMG OM FURNITURE. PROVIDED REDIRECTION, 1:1 EMOTIONAL SUPPORT AND DECREASED STIMULI. WILL CONTINUE MONITOR MOODS AND BEHAVIORS.
--- NOTE | 2019-11-19 21:13 | NUR ---
24 HR chart check completed.
--- NOTE | 2019-11-19 22:46 | NUR ---
P-AGITATED/IRRITABLE. RESTLESS. VISUAL AND TACTILE HALLUCINATIONS. COMBATIVE. I-ASSESSED FOR SI/HI, HALLUCINATIONS AND PARANOIA. PROVIDED REDIRECTION, DIVERSIONAL ACTIVITES AND 1:1 EMOTIONAL SUPPORT PROVIDED. ADMINISTERED MEDICATIONS PER PHYSICIANS ORDERS. R-DENIES SI/HI. PT RESPONDING TO INTERNAL STIMULI, "BUGS ARE CRAWLING ON MY SKIN." HE IS ALSO CALLING OUT FOR HIS DOG. PT NOT RECEPTIVE TO REDIRECTION, DIVERSIONAL ACTIVITIES OR 1:1. P-WILL CONTINUE TO MONITOR FOR HALLUCINATIONS, MOOD AND BEHAVIORS. Q 15 MIN CHECKS MAINTAINED.
--- NOTE | 2019-11-20 04:20 | NUR ---
PT HAVING VISUAL HALLUCINATIONS OF SNAKES BEING ON HIS CHAIR. REACHING OUT GRABBING UNSEEN ONBJECTS AND PUTTING TO HIS MOUTH IF HE WAS EATING SOMETHING. CALLING OUT TO UNSEEN OTHERS. REMAINS RESTLESS. ATTEMPTED TO REDIRECT AND PRESENT REALITY. PT RESTING COMFORTABLY AT THIS TIME. WILL CONTINUE TO MONITOR MOODS AND BEHAVIORS.
--- NOTE | 2019-11-20 06:00 | NUR ---
PT SLEPT 1 HOUR. Q 15 MIN CHECKS MAINTAINED.
--- NOTE | 2019-11-20 07:05 | NUR ---
PHYSICAL THERAPY Patient seen this am for therapy visit and was sitting up in conference room Whitney chair upon therapist arrival. Patient identified by name / and was very "guarded" this morning with OT sociology research assistant present for observation this session. Patient transfers sit to stand at railing in hallway, CGA, tolerating approx 2 minutes static stand with B UE support. Patient demonstrated improved upright posture with decreased B knee flexion, followed by gait training, NEWS PRODUCER/MIN, 8'x 1 in bathroom. Patient completed toilet transfer, CGA, use of L side grab bar, then ambulated addtional 5'x 1 to sink. Patient returned to Whitney chair via SPT, NEWS PRODUCER/MIN and remained in activity room with lap tray, body alarm, under U staff Supervision. Will continue per POC as tolerated, total treatment time 15 minutes. Holland Lozano, AIR ANALYSIS ENGINEERING TECHNICIAN
--- NOTE | 2019-11-20 07:16 | NUR ---
OT NOTE Prior to coming to the floor spoke with nurse Stafford and reported that therapy was coming to treat this pt. Nurse gave approval. Pt was seen this A.M. 1:1 for 25 minute OT session with DIRECTOR RETIREMENT and nursing staff present for observation only. Upon arrival pt was sitting upright in the xavier chair in the quiet room. Pt identified by name and and had no complaints at this time. While seated pt donned B socks with Yoni for inital start over his toes he was then able to complete task with SBA. Pt was taken out to the hallway where he completed multiple sit to stand transfers from chair level with CGA and use of hand rail for UE support. Challenged pt's static standing tolerance needed for increased I in self care tasks and functional transfers, pt was able to tolerate aprox 2 minutes of static standing before sitting due to fatigue. Throughout pt required one tactile prompt to correct his posture, pt presented with good carry over. pt was then taken to the bathroom where he completed sit to stand with Yoni hand held followed by functional mobility to the commode with Yoni hand held. Pt transferred on/off the standard commode with Yoni and use of grab bar. He then stood sink side while washing his hands with Yoni for assist with correcting retrograde posture throughout and Yoni for sequencing of task. Pt was left sitting upright in the xavier chair in the dining irby with lap tray in place, body alarm activated, and under [facility] staff supervision. Continue with rec D/C plan to SNF. ZHANG Ventura
[2019-11-20 07:30] VITALS: BP 157/68
--- NOTE | 2019-11-20 07:55 | NUR ---
PHYSICAL THERAPY Screen received pt has been evaluated and is on caseload thank you Angie Pope PT
--- NOTE | 2019-11-20 09:00 | NUR ---
Treatment Plan meeting was held this a.m. with Dr. Chery, ARIANNE Blair RN, BUTTON SAWYER-S and Evaporator Repairer in attendance. Plan is for Pt. to go home when Psychiatrically Stable. Dr. Chery is adjusting Medications.
[2019-11-20 11:01] LABS: BASO % 0.3 % (0.0-1.0); EOS # 0.2 10*3/uL (0.0-0.4); EOS % 1.7 % (1.0-4.0); HEMATOCRIT 40.3 % (42.0-52.0); LYMPH # 1.2 10*3/uL (1.3-4.4); LYMPH % 13.5 % (27.0-41.0); MEAN CELL VOLUME 90.4 fl (80.0-94.0); MEAN CORPUSCULAR HGB CONC 33.3 g/dl (33.0-37.0); MEAN PLATELET VOLUME 10.2 fl (9.6-12.3); MONO # 0.7 10*3/uL (0.1-1.0); MONO % 8.1 % (3.0-9.0); NEUT # 6.9 10*3/uL (2.3-7.9); NEUT % 76.2 % (47.0-73.0); PLATELET COUNT AUTOMATED 235 10*3/uL (130-400); RED BLOOD COUNT 4.46 10*6/uL (4.50-5.90); RED CELL DISTRI WIDTH 13.1 % (0-14.5); WHITE BLOOD COUNT 9.1 10*3/uL (4.8-10.8)
[2019-11-20 11:32] LABS: ALBUMIN 3.2 gm/dl (3.1-4.5); ALKALINE PHOSPHATASE 106 U/L (45-117); BUN 32 mg/dl (7-24); CHLORIDE 112 mmol/L (98-107); CREATININE 1.08 mg/dL (0.70-1.30); POTASSIUM 3.9 mmol/L (3.5-5.1); SGOT/AST 49 IU/L (3-35); SGPT/ALT 44 U/L (12-78); SODIUM 136 mmol/L (136-145); TOTAL PROTEIN 7.6 gm/dL (6.4-8.2)
--- NOTE | 2019-11-20 11:34 | NUR ---
SPEECH PATHOLOGY Patient seen for dysphagia tx this date in dining room area of [facility] floor. Patient was alert and responsive, oriented to self but confused, sitting in Merry Walker. Patient was given chocolate pudding as a snack and thin liquid arron marietta, fed by speech pathologist due to confusion. 100% of pudding snack consumed with cough post swallow x2 and mild wet/gurgly vocal quality post swallow. Patient is edentulous and is currently ordered a puree/thin liquid diet due to pocketing and inadequate mastication, however his nurse Mary states he has not been eating much of the puree and she believes he may consume more if on a mechanical soft diet with chopped meats. Due to coughing post swallow of pudding snack this date, trial of mechanical soft was not completed but may be indicated in the future if PO intake of puree remains poor and signs and symptoms of aspiration improve. No pocketing of pudding noted during ST session. PRACTICE OR STUDENT TEACHER continues to recommend patient be upright with swallowing precautions for all PO intake and to continue ST treatment to ensure safe swallow of least restrictive consistency with adequate PO intake to maintain nutritional/hydrational needs. Thank you for this referral, Afshan Bourne, MS, CCC-PRACTICE OR STUDENT TEACHER
--- NOTE | 2019-11-20 11:40 | NUR ---
DR. MORLEY ON UNIT TO ASSESS PATIENT.
[2019-11-20 13:15] LABS: BILIRUBIN Negative (Negative); BLOOD Negative (Negative); CLARITY Clear (Clear); COLOR Yellow (Yellow); GLUCOSE Negative (Negative); KETONE Negative (Negative); LEUKO ESTERASE Trace (Negative); NITRITE Negative (Negative); UROBILINOGEN 0.2 E.U./dl (0.0-1.0)
[2019-11-20 13:48] LABS: BACTERIA 1+; WAXY CAST 0-2
--- NOTE | 2019-11-20 17:11 | NUR ---
DR CHIN UPDATED ON PT URINE RESULTS
--- NOTE | 2019-11-20 19:25 | NUR ---
PT YELLING OUT TODAY STATING HE WANTS TO WALK BY HIMSELF REFUSING HELP FROM STAFF. THIS NURSE TALKED TO PT AND COMPRIMISED WITH 1 STAFF MJEMBER HELPING. WHEN PT WAS STOOD UP WITH THE 1 STAFF THE PT STARTED REACHIONG OUT WITH OPPOSITE HAND. THIS NURSE ASSISTED WITH PT. PT TOOK APPROXIMATELY 10 STEPS AND STATED HIS LEGS HURT AND HE WASNT GOING TO MAKE IT. PT PLACED BACK IN THE CHAIR. PT WAS HAVING AUDITORY AND VISUAL HALLUCINATIONS. PT REACHING AND ATTEMPTING TO TURN UNSEEN OBJECTS AND TALKING TO UNSEEN OTHERS. PT DOES BECOME IRRITABLE WHEN HE CANT DO THINGS FOR HIMSELF. EXPLAINED TO PT HE IS IN THE HOSPITAL SO WE CAN GET HIM STRONG ENOUGH TO GET BACK HOME SO HE CAN COMPLETE THE ADLS ON HIS OWN. PT NONCOMPLAINT WITH DRESSING ON HIS LEFT ELBOW. UNABLE TO REIDIRECT PT . PT REMOVED DRESSING ONCE IT WAS APPLIED. BEHAVIORS MONITORED WITH Q15 MINUTE SAFETY CHECKS. CONTINUE TO OFFER SUPPORT AND 1:1 FOR THERAPEUTIC COMMUNICATION. CONTINUE TO MONITOR BEHAVIORS WITH Q15 MINUTE SAFETY CHECKS. MEDICATION COMPLIANT WITH ENCOURAGEMENT.
[2019-11-20 19:42] VITALS: BP 148/70
--- NOTE | 2019-11-20 21:12 | NUR ---
PT RESETLESS, ANXIOUS, HITTING FURNITURE, YELLING OUT. PROVIDED 1:1 EMOTIONAL SUPPORT, REDUCED STIMULI WITHOUT SUCCESS. PRN ATIVAN 1MG PO GIVEN PER ORDERS.
--- NOTE | 2019-11-20 22:38 | NUR ---
PRN ATIVAN 1MG PO INEFFECTIVE. PT CONTINUES TO YELL OUT, BANG ON FURNITURE, INCREASED AUDITORY AND VISUAL HALLUCINATIONS. PROVIDED 1:1 EMOTIONAL SUPPORT, REDUCED STIMULI WITHOUT EFFECT. GEODON 10MG IM GIVEN PER ORDERS.
--- NOTE | 2019-11-20 23:38 | NUR ---
PRN GEODON INEFFECTIVE. PT CONTINUES TO HAVE AUDITORY, VISUAL AND TACTILE HALLUCINATIONS. PT REPORTS THERE ARE BUGS CRAWLING ON HIM. PT IN QUIET ROOM FOR CLOSE OBSERVATION.
--- NOTE | 2019-11-21 05:55 | NUR ---
24 HR chart check completed.
--- NOTE | 2019-11-21 06:43 | NUR ---
PT SLEPT 2 HOURS.
--- NOTE | 2019-11-21 06:44 | NUR ---
PT CONTINUES HAVING TACTILE HALLUCINATIONS AT THIS TIME. LESS AGITATION NOTED AT THIS TIME.
--- NOTE | 2019-11-21 07:27 | NUR ---
OT NOTE Prior to coming to the floor spoke with nurse Dugan and reported that therapy was coming to treat this pt. Nurse gave approval. Pt was seen this A.M. 1:1 for 15 minute OT session with CREDENTIALING ANALYST and nursing staff present for observation only. Upon arrival pt was sitting upright in the xavier chair in the dining irby. Pt identified by name and and had no complaints at this time. Pt was taken out to the hallway where he completed multiple sit to stand transfers from chair level with CGA and use of hand rail for UE support. Challenged pt's static standing tolerance needed for increased I in self care tasks and functional transfers. Pt was able to tolerate aprox 3 minutes at a time before sitting due to fatigue. Pt was left sitting upright in the xavier chair in the dining irby under [facility] staff supervision, lap tray in place, and body alarm activated for safety. Continue with rec D/C plan to SNF. ZHANG Ventura
--- NOTE | 2019-11-21 07:35 | NUR ---
PHYSICAL THERAPY Patient seen this am for therapy visit and was sitting up in activity room Whitney chair upon therapist arrival. Patient identified by name / and joined by OT graduate research assistant this session for observation. Patient was a little "sluggish" this morning and needed several v/c's to focus on all therapy task as he performed several sit to stand transfers [facility]. Patient tolerated approx 3 mintes static stand, [facility], demonstrating improved upright posture, then able to ambulate MIN/SURGICAL PHYSICIAN ASSISTANT, 12'x 1 along handrail, demonstrating POOR step sequence. Patient very unsteady ambulating and remains a high risk for falling. Patient returned to his Whitney chair and remained at table in activity room awaiting breakfast, under [facility] staff Supervision. Will continue per POC as tolerated, total treatment time 14 minutes. Holland Lozano, ER NURSE
[2019-11-21 08:00] VITALS: BP 164/51
--- NOTE | 2019-11-21 08:30 | NUR ---
Treatment Plan meeting was held this a.m. with Dr. Chery via telephone, TALENT ACQUISITION ASSOCIATE Rossy, RN, AT, PANEL ASSEMBLER-S and Cdl Driver in attendance. Plan for discharge Next week. Court Orderly had spoken previously with family and they were insistant that Pt. will return home. Will follow with Nursing, Family and PT/OT to assess Home Needs.
--- NOTE | 2019-11-21 11:05 | NUR ---
DR MORLEY ON UNIT TO ASSESS PATIENT, UPDATE PROVIDED.
--- NOTE | 2019-11-21 13:08 | NUR ---
Spoke with Pt. is Quiet Room when he was eating his Lunch. Discussed discharge Plans and Pt. states "I want to go Home and live at My House". Discussed Safety and whether family is able to Provide his home Needs and Pt. states "Yes". Advised Pt. that Therapy has recommended SNF and Pt. Declines. Pt. is receptive to Home Health and Visiting Nurse. Will Follow with family to discuss discharge Plans further.
--- NOTE | 2019-11-21 14:14 | NUR ---
SPEECH PATHOLOGY Patient was seen for treatment this pm during lunchtime meal. Patient was sitting upright in xavier chair in the quiet room. Patient was awake and responsive. Tray set up was provided by clinician. Clinician attempted to assist patient with self feeding however he was resistant to any assistance. Patient spilled and dropped food and liquid throughout the meal. Adaptive grippers were placed on his utensils and patient was given coffee cup with lid and small opening to limit his intake amount. He displayed no overt swallowing difficulty with food or liquid. His intake was fair. He ate slowly but took large bites and sips, needing cues to take smaller amounts. Staff reports his intakes have been poor. Continue therapy plan. SPARKLE SMITH MSCCC-CHART CALCULATOR
--- NOTE | 2019-11-21 15:55 | NUR ---
PM GROUP PT WAS PRESENT FOR AFTERNOON GROUP THERAPY SEATED IN A RICH CHAIR SLEEPING. PT DID NOT WAKE DURING GROUP.
--- NOTE | 2019-11-21 16:51 | NUR ---
PT ALERT TO PERSON WITH CONFUSION NOTED. PT BEHAVIORS STABLE THROUGHOUT THE EARLY PART OF THE SHIFT. THE SHIFT PROGRESSED THE PT BECAME MORE AGGITATED AND IRRITABLE. PT ASKED TO SPEAK TO FAMILY. PT DID SPEAK TO JUAN. PT STATED TO JUAN "GET ME OUT OF HERE" WHEN EXPLAINED TO THE PT HE SIGNED IN FOR TREATMENT, PT STATED "SHIT". PT ASKED TO SEE THE PAPER WHERE HE SIGNED IN. EXPLAINED TO THE PT HE GAVE VERBAL CONSENT FOR TREATMENT TO TWO STAFF MEMBERS. PT STATES HE DID NOT GIVE CONSENT. PT SOMEWHAT IRRITABLE. NOT REDIRECTABLE WITH THIS MATTER. VISUAL HALLUCINATIONS NOTED PT WAS REACHING FOR OBJECTS IN THE AIR. MEDICATION COMPLIANT WITHOUT DIFFICULTY. MEDICATION EDUCATION PROVIDED. 1:1 PROVIDED FOR THERAPEUTIC COMMUNICATION. PT ON MACROBID FOR UTI. 2-4 ASSIST DEPENDING ON PT'S CURRENT MOOD. WILL CONTINUE TO MONITOR BEHAVIORS AND OFFER 1:1 FOR THERAPEUTIC COMMUNICATION. SEE [facility] FLOWSHEET FOR SPECIFIC MONITORING.
[2019-11-21 19:46] VITALS: BP 160/58
[2019-11-21 20:30] VITALS: BP 146/70
--- NOTE | 2019-11-21 23:11 | NUR ---
P-RESTLESS. DEMANDING TO GO TO BED AT BEGINNING OF SHIFT. I-ASSESSED FOR HALLUCINATIONS, PARANOIA AND DELUSIONS. PROVIDED REDIRECTION, REORIENTATION AND 1:1 EMOTIONAL SUPPORT. HS SNACK OFFERED. ADMINISTERED MEDICATIONS PER PHYSICIANS ORDERS. OFFERED REPOSITIONING AND REST. R-NO RESPONSE TO INTERNAL STIMULI NOTED. ACCEPTED REDIRECTION, REORIENTATION AND 1:1 EMOTIONAL SUPPORT. ATE HS SNACK. RESTING IN BED COMFORTABLY AT THIS TIME. MEDICATION COMPLIANCE. ADLS X 2 ASSIST. NO COMBATIVE BEHAVIORS. P-WILL CONTINUE TO MONITOR FOR HALLUCINATIONS, DELUSIONS AND PARANOIA. Q 15 MIN CHECKS MAINTAINED.
--- NOTE | 2019-11-22 06:19 | NUR ---
24 HR chart check completed. PT SLEPT 8 HOURS WITH NO INTERRUPTIONS.
--- NOTE | 2019-11-22 07:30 | NUR ---
OT NOTE Prior to coming to the floor spoke with nursing staff and reported that therapy was coming to treat this pt. Nurse gave approval. Pt was seen this A.M. 1:1 for 15 minute OT session with GROUND SUPPORT EQUIPMENT ASSEMBLER and nursing staff present for observation only. Upon arrival pt was sitting upright in the xavier chair in the dining irby. Pt donned B socks with SBA while seated. Pt identified by name and and had no complaints at this time. Pt was taken out the hallway where he completed multiple sit to stand transfers from chair level with CGA and use of hand rail for UE support. Challenged pt's static standing tolerance needed for increased I in self care tasks and functional transfers. Pt was able to tolerate aprox 2 minutes at a time before sitting due to fatigue. Pt was left sitting upright in the dining irby under U staff supervision with body alarm activated for safety, and lap tray in place. Continue with rec D/C plan to SNF. ONEYDA Ventura/Kelly
[2019-11-22 07:39] VITALS: BP 153/72
--- NOTE | 2019-11-22 08:30 | NUR ---
Treatment Plan meeting was held this a.m. with ARIANNE Blair RN, AT and Issuer in attendance. Plan for discharge Next Week. Pt. will return home at discharge.
--- NOTE | 2019-11-22 09:26 | NUR ---
DR LOPEZ ON UNIT TO ASSESS PATIENT, UPDATE PROVIDED.
--- NOTE | 2019-11-22 10:28 | NUR ---
P: PT IRRITABLE WITH STAFF. PT RESTLESS AND AGITATED. PT STATED MULTIPLE TIMES THIS MORNING THAT HE HAS BUGS CRAWLING ON HIS, STAFF OBSERVED PT TO BE ITCHING AND SCRATCHING AT SKIN. I: PROVIDE EMOTIONAL SUPPORT AND 1:1 FOR PT TO VOICE FEELINGS, ENCOURAGE MED COMPLIANCE AND PROVIDE MED EDUCATION, ENCOURAGE GROUP PARTICIPATION AND SOCIALIZATION, PROVIDE DIVERSIONAL ACTIVITIES, RE-ORIENT AND PRESENT REALITY R: PT ALERT TO PERSON AND PLACE. PT MED COMPLIANT WITHOUT DIFFICULTY. PT CONTINUES TO BE IRRITABLE AND RESTLESS AT TIMES. PT CONTINUES TO VOICE VISUAL HALLUCINATIONS. PT DENIES ANY SUICIDAL THOUGHTS AT THIS TIME, STATES "OH NO, NOT ANYMORE, I WOULD NEVER DO THAT." PT UP TO A GERICHAIR, REQUIRES 2-4 STAFF ASSIST FOR TRANSFERS AND CARE. PT CONTINENT OF BOWEL AND BLADDER, EPISODES OF INCONTINENCE NOTED, CARE PROVIDED. P: MONITOR PT BEHAVIORS ON Q15 MIN SAFETY CHECKS, ENCOURAGE MED COMPLIANCE AND PROVIDE MED EDUCATION, ENCOURAGE GROUP PARTICIPATION AND SOCIALIZATION, PROVIDE EMOTIONAL SUPPORT AND 1:1 FOR PT TO VOICE FEELINGS
--- NOTE | 2019-11-22 11:18 | NUR ---
PHYSICAL THERAPY Patient seen this am for therapy visit and was sitting up in activity room Whitney chair upon therapist arrival. Patient identified by name / and was joined by OT physicians assistant for observation. Patient reports no c/o's pain and transfers sit to stand at handrail, CGA, tolerating approx 2 minutes static stand, SBA with B UE handrail support. Patient also ambulated 15'x 1, LAB DIRECTOR/MIN demonstrating "scissoring" gait pattern, decreased stride and quick onset of fatigue. Patient returned to his Whitney chair in activity room awaiting breakfast, with lap tray and body alarm, under [facility] staff Supervision. Will continue per POC as tolerated, total treatment time 14 minutes. Holland Lozano, BULK TRUCK DRIVER
--- NOTE | 2019-11-22 11:53 | NUR ---
AM GROUP PT WAS PRESENT FOR MORNING GROUP THERAPY SEATED IN A RICH CHAIR AT A TABLE. PT WAS ENCOURAGED TO PARTICIPATE IN GROUP BUT DECLINED. PT ATTEMPTED GETTING UP UNASSISTED AND SET THE CHAIR ALARM OFF. PT BECAME VERY AGITATED AND USING VULGAR LANGUAGE STATING THAT HE HAD TO USE THE RESTROOM AND DIDN'T KNOW WHY THAT *&^( THING WAS ON? PT WAS TAKEN INTO THE HALLWAY TO BE ASSISTED.
--- NOTE | 2019-11-22 12:21 | NUR ---
SPEECH PATHOLOGY Patient was seen for treatment this pm during lunchtime meal. Patient was sitting upright in xavier chair in activity room. Patient was alert and cooperative. Tray set up was provided by clinician, adaptive matchbook maker were placed on utensils, then patient fed himself. He displayed some difficulty getting food to mouth but less difficulty when compared to yesterday. He displayed no overt difficulty swallowing food or liquid. He consumed a variety of food and thin liquids and displayed good intake overall. He is tolerating present pureed diet and thin liquid and it is recommended he remain on this diet for safety due to pocketing and spitting out solids. Recommend patient continue to be monitored during meals and provided with assistance as needed. Patient will be discharged from dysphagia therapy at this time. Thank you for this referral. It has been a pleasure taking part in this patient's care. SPARKLE SMITH MSCCC-WET PAN MIXER
--- NOTE | 2019-11-22 15:46 | NUR ---
PM GROUP PT WAS PRESENT FOR AFTERNOON GROUP THERAPY SEATED AT A TABLE IN A RICH CHAIR. PT WAS IRRITATED AND WANTED TO USE THE PHONE TO CALL HIS NIECE. THE CHARGE NURSE WOULD NOT ALLOW PT TO CALL DURING AFTERNOON GROUP AND PT STATED, "YOU ARE TRYING TO KEEP ME FROM MAKING A PHONE CALL!" PT WAS LEFT TO VENT. PT WAS LATER ASKED BY MHW TO HAVE HIS HAIR WASHED TO HELP WITH THE ITCHING. PT BECAME AGITATED WITH MHW AND REFUSED STATING, "IT'S NOT GOING TO HELP!"
[2019-11-22 19:15] VITALS: BP 135/53
--- NOTE | 2019-11-22 22:32 | NUR ---
P-CONFUSION, DEMANDING I-REDIRECTION WITH 1:1 THERAPEUTIC INTERVENTIONS AND PRESENT REALITY. EDUCATE AND ENCOURAGE MEDICATION COMPLIANCE R-PATIENT MEDICATION COMPLIANT AT HS. PATIENT REFUSED NOURISHMENT BUT PROVIDED FLUIDS AT HS. PATIENT YELLING OUT IN DINING AREA "WHERE'S MY PILLS AND PUT ME TO BED. PATIENT SPEECH LESS GARBLED. PATIENT WITH NO HALLUCINATIONS OR DELUSION. PATIENT WITH NO HOMICIDAL OR SUICIDAL IDEATIONS. P-CONTINUE TO ENCOURAGE MEDICATION COMPLIANCE, CONTINUE TO PRESENT REALITY, ENCOURAGE GROUP THERAPY WHILE AWAKE
--- NOTE | 2019-11-23 06:57 | NUR ---
PATIENT SLEPT 6-7 HOURS INTERRUPTED SLEEP THROUGHOUT SHIFT. Q 15 MINUTE CHECKS MAINTAINED. 24 HR chart check completed.
--- NOTE | 2019-11-23 07:15 | NUR ---
PHYSICAL THERAPY Patient seen this am for therapy visit and was sitting up in activity room Whitney chair upon therapist arrival. Patient identified by name / and was joined by OT assistant news director for observation this session. Patient was more talkative this morning, voicing multiple episodes of having "bugs" on his hands / body and several times started to become a little agitated by this Hallucination. Therapist attempted to redirect patient with v/c to focus on task, however only 50% productive. Patient performed several sit to stand transfers at handrail in hallway, CGA, B UE support, tolerating approx 1 minute static stand, CGA x 1. Patient also able to ambulate this session, BRAIDING MACHINE TENDER/MIN, with single handrail support along rail, 20'x 1, demonstrating POOR upright posture, decreased stride and bouts of unsteady gait pattern. Patient returned to his Whitney chair and remained in activity room with lap tray, body alarm, under [facility] staff Supervision. Will continue per POC as tolerated, total treatment time 14 minutes. Holland Lozano, HARNESS MENDER
--- NOTE | 2019-11-23 07:30 | NUR ---
OT NOTE Prior to coming to the floor spoke with nurse Aaron and reported that therapy was coming to treat this pt. Pt was seen this A.M. 1:1 for 15 minute OT session with FROZEN FOOD DEPARTMENT MANAGER and nursing staff present for observation only. Upon arrival pt was sitting upright in the xavier chair in the dining irby. Pt was identified by name and and had complaints of "bugs being on him and all over" which were not present. Pt was taken out to the hallway where he completed multiple sit to stand transfers from chair level with CGA and use of hand rail for UE support. Challenged pt's static standing tolerance needed for increased I in self care tasks and functional transfers. Pt was able to tolerate aprox 3 minutes at a time before sitting due to fatigue. Pt was left sitting upright in the xavier chair in the dining irby under [facility] staff supervison, lap tray in place, and body alarm activated for safety. Continue with rec D/C plan to SNF. Omar Ventura
[2019-11-23 07:49] VITALS: BP 145/65
--- NOTE | 2019-11-23 08:55 | NUR ---
Patient resting quietly with no c/o discomfort. Respirations easy and regular. Vital signs stable. No overt distress. TITI FERNÁNDEZ PT ATE BREAKFAST. IN DINING ROOM WITH PEERS. ON UNIT TO SEE PT AT THIS TIME, UPDATE GIVEN.
--- NOTE | 2019-11-23 09:35 | NUR ---
ON UNIT TO SEE PT AT THIS TIME.
--- NOTE | 2019-11-23 11:48 | NUR ---
P: PT ANGRY/IRRITABLE WITH STAFF, YELLING OUT "I WANT THE HELL OUT OF HERE, LET ME GO HOME, CALL MY NEICE AND TELL HER TO COME GET ME." PT RESTLESS AT TIME. PT REFUSED TO PARTICIPATE IN GROUP/ACTIVITIES. PT RESISITVE TO AM PO MEDS. I: PROVDE EMOTIONAL SUPPORT AND 1:1 FOR PT TO VOICE FEELINGS, ENCOURAGE MED COMPLIANCE AND PROVIDE MED EDUCATION, ENCOURAGE GROUP PARTICIPATION AND SOCIALIZATION R: PT ALERT TO PERSON AND PLACE. WHEN APPROACHED WITH AM PO MEDS, PT STATED "I DON'T WANT THESE MEDS, THEY ARE BOTHERING ME, I CAN'T WALK." STAFF CONTINUED TO PROVIDE MED EDUCATION AND ENCOURAGED PARTICIPATION. PT COMPLIANT WITH MUCH ENCOURAGEMENT. PT CONTINUES TO BE ANGRY/IRRITABLE WITH STAFF AND PEERS. PT CONTINUES TO REFUSE GROUPS/ACTIVITIES. NO HALLUCINATIONS OR DELUSIONS NOTED. PT DENIES ANY SUICIDAL THOUGHTS, STATED "I DON'T HAVE THOSE THOUGHTS NO MORE." PT UP TO A GERICHAIR, REQUIRES 1-2 STAFF ASSIST FOR TRANSFERS AND CARE. PT CONTINENT OF BOWEL AND BLADDER, EPISODES OF INCONTINENCE NOTED, CARE PROVIDED NEEDED. P: MONITOR PT BEHAVIORS ON Q15 MIN SAFETY CHECKS, ENCOURAGE MED COMPLIANCE AND PROVIDE MED EDUCATION, ENCOURAGE GROUP PARTICIPATION AND SOCIALIZATION, PROVIDE EMOTIONAL SUPPORT AND 1:1 FOR PT TO VOICE FEELINGS.
--- NOTE | 2019-11-23 12:01 | NUR ---
AM GROUP PT WAS BROUGHT INTO THE DAYROOM DURING GROUP BY THE NURSE. PT WAS AGITATED AND YELLING AND CURSING. PT WAS LEFT AT A TABLE AND CHOSE NOT TO PARTICIPATE IN ANY ACTIVITY OFFERED. PT WAS GIVEN SPACE.
--- NOTE | 2019-11-23 14:22 | NUR ---
ACTIVITY THERAPIST APPROACHED THIS NURSE AND STATED THAT PT WAS PULLING HIS PANTS DOWN STATING THE BUGS WERE BOTHERING HIM. THIS NURSE AND 2ND RN APPROACHED PT WHO HAD TAKEN ONE OF HIS SOCKS OFF AND STATED TO THIS STAFF MEMBER "THE BUGS ARE CRAWLING ON MY FEET, AND IN MY HAIR AND ON MY ARMS. I CAN FEEL THEM AND SEE THEM. THEY ARE LITTLE GRASSHOPPER LIKE BUGS." NURSES PROVIDED EMOTIONAL SUPPORT AND 1:1 FOR PT TO VOICE FEELINGS. PROVIDED RE-ORIENTATION AND PRESENTATION OF REALITY WITHOUT SUCCESS. PT CONTINUES TO SIT IN GROUP ROOM AT THIS TIME AND REMAINS RESTLESS.
--- NOTE | 2019-11-23 14:54 | NUR ---
SPEECH PATHOLOGY Clinical swallowing evaluation completed as per orders for possible diet upgrade, due to reports of recent medication changes that may have improved swallowing. Patient is currently ordered a pureed diet and thin liquids. Medical history includes CVA, major depressive disorder, schizophrenia, anxiety, bipolar and schizoaffective disorder. Patient was previously seen for dysphagia therapy and discharged as he was tolerating present diet. He was seen this pm, sitting in activity room with peers. Patient was delusional at time of assessment, but able to follow simple commands. He was given solid food and thin liquid. Finger food was provided to improve ability to self feed. He tolerated items with no overt difficulty. Mastication was slow but functional due to edentulous status. No residue, pocketing or coughing was observed post swallow. Patient tolerated liquid by straw without difficulty. Recommend diet upgrade to soft/regular foods, preferably finger foods, which are easier for him to eat as he has difficulty with self feeding but is reluctant to accept assistance during meals. Follow up therapy is recommended to ensure safe diet upgrade. Refer to report in [employer] for further information. SPARKLE SMITH MSCCC-SERVER SUPPORT TECHNICIAN
--- NOTE | 2019-11-23 15:42 | NUR ---
PM GROUP PT WAS PRESENT FOR AFTERNOON GROUP THERAPY SITTING IN A CHAIR AT A TABLE. PT WAS CALM AND QUIET. ABOUT 40 MINUTES INTO GROUP PT BEGAN PULLING UP HIS PANT LEGS AND STATED, "THEY'RE CRAWLING ALL OVER ME! THE BUGS, THEY'RE EATING ME UP FROM THE INSIDE OUT!" PT POINTED AT SOME SCABS AND STATED THEY WERE CAUSED BY THE BUGS. PT WAS ALSO VIOLENTLY SCRATCHING HIS HEAD AND SHOULDERS STATING THE BUGS WERE THERE TOO. PT BECAME VERY AGITATED AND WAS YELLING THAT THE BUGS WERE KILLING HIM AND WERE GOING TO GET EVERY ONE ELSE. PT NURSE WAS NOTIFIED. NURSE SPOKE WITH PT BRIEFLY AND LEFT THE DAYROOM. PT CONTINUED TO "STOMP" ON THE BUGS AND HIS PEERS BECAME UPSET, ONE LEAVING THE ROOM, AND ONE ASKING, "WHY IS IN HERE WITH US? IS HE CONTAGIOUS?" PT COULD NOT BE PRESENTED WITH REALITY AND YELLED, "YOU'RE ALL LIARS"
[2019-11-23 19:07] VITALS: BP 140/66
--- NOTE | 2019-11-23 19:51 | NUR ---
Patient resting quietly with no c/o discomfort. Respirations easy and regular. Vital signs stable. No overt distress. RADHA MCKEON
--- NOTE | 2019-11-24 06:14 | NUR ---
PT SLEPT 5 INTERRUPTED HOURS LAST NIGHT. PT HAD URINARY FREQUENCY AND SEVERAL INCONTINENT EPISODES. PT IS CURRENTLY ON MACROBID FOR UTI. PT PROVIDED WITH HOC.
--- NOTE | 2019-11-24 07:21 | NUR ---
OT NOTE Attempted to see pt this A.M. for OT session. Upon arrival pt was sitting upright in the xavier chair in the dining irby. Pt became aggitated when requesting to participate and was unable to redirect pt at this time. Will check back at a later time/date and continue with POC as able. ONEYDA Ventura/Kelly
[2019-11-24 07:31] VITALS: BP 141/69
--- NOTE | 2019-11-24 07:45 | NUR ---
PHYSICAL THERAPY Patient was sitting up in activity room Whitney chair this am when approached for therapy visit and became very agitated when asked to participate. Patient did not respond to Therapist cues and unable to be redirected at this time. Patient remained in Whitney chair under [facility] staff Supervision. Will continue per POC as able. Holland Lozano, FINANCIAL SERVICE PROFESSIONAL
--- NOTE | 2019-11-24 08:30 | NUR ---
Treatment Plan meeting was held this a.m. with ARIANNE Blair, RN, AT, ACTIVITIES CONCIERGE-S and Neuropsychologist. Plan for discharge Next Week. Pt. want to return home at discharge. Some Concerns Expressed by staff about Pt. needs being met at home. Will follow with family at home.
--- NOTE | 2019-11-24 11:12 | NUR ---
this U stay has been approved with last covered day today was 11/23/19 with review today. Review was today with Miranda. she stated she would have to send this information to their medical officer and she asked for peers number. provided her with Alicia Shrestha number. Malika stated the insurance doctor would contact Alicia within the next ten minutes. notified U exercise planner
--- NOTE | 2019-11-24 11:30 | NUR ---
ABIGAIL BUSINESS INTEGRATION MANAGER ON UNIT TO SEE PT AT THIS TIME.
--- NOTE | 2019-11-24 11:43 | NUR ---
AM /TONYA PT WAS PRESENT FOR MORNING GROUP THERAPY BUT WAS VERY AGITATED AND REFUSED TO PARTICIPATE. PT SAT IN A CORNER AND IF SPOKEN TO WAS IRRATE AND PARANOID. PT ALSO EXPRESSED THE HALLUCINATION OF HAVING BUGS CRAWLING ALL OVER HIM. PT BECOMES VERY DEFENSIVE AND STATES, "I'M NOT LYING"
--- NOTE | 2019-11-24 12:10 | NUR ---
AP KAUR SQL TECH CALLED TO SPEAK WITH THIS NURSE RE: PT VISUAL AND TACTILE HALLUCINATIONS. NEW ORDERS RECEIVED FOR SERQUEL 75 DAILY TO START TOMORROW.
--- NOTE | 2019-11-24 12:35 | NUR ---
SPEECH THERAPY Patient seen for dysphagia treatment during lunchtime meal. His diet was recently upgraded from pureed consistency to soft diet with thin liquds. Patient was able to self feed with limited difficulty and required minimal clinician assistance for tray setup. He consumed large bites of soft solids and pureed items and at with increased rate. Cues provided for reduecd speed and smaller bite sizes, however cues and re-direction were ineffective. Patient consumed sips of thin liquid via straw with impsulsive sip size with consecutive sips of liquid. Cues provided to reduce sip size, and to consume small, single sips. No overt s/s of penetration or aspiration were observed throughout meal with patient displaying tolerance of diet upgrade. However, due to patient's impulsivity displayed during PO intake this date (large bites, large consecutive sips, etc.) he is at greater risk for penetration/aspiration and continued short term treatment is recommended with focus on use of safe swallowing and compensatory strategies. Results and recommendations shared with patient and nursing staff. Nelida Castañeda MA CCC-MANAGER [employer] STORE
--- NOTE | 2019-11-24 12:54 | NUR ---
case management received a call from Miranda at patient's insurance. she stated after the peer to peer review patients stay is approved 4 more days with next review being 11/28/19, [facility] emergency planner made aware
--- NOTE | 2019-11-24 14:40 | NUR ---
P: PT IRRITABLE WITH STAFF OVER HOSPITAL STAY, STATING "WHERE THE HELL IS THE DAMN QUACK OF A DOCTOR, I WANT TO LEAVE. DID MY NEICE CALL BACK, SHE NEEDS TO COME AND GET ME." PT RESISITIVE WITH AM PO MEDS. PT EXPERIENCING TACTILE AND VISUAL HALLUCINATIONS OF BUGS CRAWLING ON HIM. I: PROVIDE EMOTIONAL SUPPORT AND 1:1 FOR PT TO VOICE FEELINGS, ENCOURAGE MED COMPLIANCE AND PROVIDE MED EDUCATION, ENCOURAGE GROUP PARTICIPATION AND SOCIALIZATION, RE-ORIENT AND PRESENT REALITY R: PT ALERT TO PERSON AND PLACE. PT PRESENTED WITH AM PO MEDS PT RESISITIVE. PT STATED "I AIN'T NEVER HAD TO TAKE THIS MANY MEDS AT HOME". NURSE PROVIDED MED EDUCATION TO PT, PT COMPLIANT WITH MINIMAL DIFFICULTY. PT CONTINUES TO VOICE VISUAL AND TACTILE HALLUCINATIONS, UNRECEPTIVE TO PRESENTATION OF REALITY. PT AMBULATING WITH WHEELED WALKER, GAIT UNSTEADY AT TIMES. PT CONTINENT OF BOWEL AND BLADDER. P: MONITOR PT BEHAVIORS ON Q15 MIN SAFETY CHECKS, ENCOURAGE MED COMPLIANCE AND PROVIDE MED EDUCATION, ENCOURAGE GROUP PARTICIPATION AND SOCIALIZATION, CONTINUE TO PRESENT REALITY AND RE-ORIENT, PROVIDE EMOTIONAL SUPPORT AND 1:1 FOR PT TO VOICE FEELINGS.
--- NOTE | 2019-11-24 15:00 | NUR ---
Left a voicemail message for pt's niece Madhuri Avila informing her that pt is adamant about returning home. Offered to arrange VNA for nursing, PT/OT. Await return call.
--- NOTE | 2019-11-24 15:19 | NUR ---
Spoke with Pt. Lata Dhaliwal who lives with Pt. Advised of Concerns for Pt. going home. Madhuri states that the Household depends on Pt. income to meet their Bills and He currently makes too much for Medicaid. Discussed Options for care after Pt. qualifying SNF days and Madhuri states that Pt. would need to return home. Advised of Insurance not further paying for stay in [facility] after Wednesday and Madhuri states that Pt. will discharge Wednesday with Return Home. Pt. has a Jewel Setter who will assist with home Needs.
--- NOTE | 2019-11-24 15:39 | NUR ---
PM GROUP PT WAS ATTENDED AFTERNOON GROUP THERAPY AND PARTICIPATED BY WATCHING A WESTERN MOVIE. PT WAS CALM AND QUIET FOR THE MOST PART.
[2019-11-24 19:59] VITALS: BP 151/59
--- NOTE | 2019-11-24 20:04 | NUR ---
Patient resting quietly with no c/o discomfort. Respirations easy and regular. Vital signs stable. No overt distress. RADHA MCKEON
[2019-11-25 08:00] VITALS: BP 140/62
--- NOTE | 2019-11-25 13:27 | NUR ---
ABIGAIL SODA FOUNTAIN MANAGER ON UNIT TO SEE PT AT THIS TIME.
--- NOTE | 2019-11-25 14:00 | NUR ---
ELBOW PROTECTORS OBTAINED PER ORDERS FOR PT. PT REFUSED THEM STATES "I AM NOT WEARING THOSE".
--- NOTE | 2019-11-25 19:03 | NUR ---
P- IRRITABLE REGARDING STILL BEING THE HOSPITAL. PREOCCUPIED WITH GOING HOME. VISUAL HALLUCINATIONS. I- ORIENTATION, MOOD AND BEHAVIORS ASSESSED. ASSESSED PT FOR SI/HI, INTENT OR PLAN. ASSESSED PT FOR S/S HALLUCINATIONS, PARANOIA AND/OR DELUSIONS. MEDICATIONS ADMINISTERED PER PHYSICIAN'S ORDERS. ASSISTANCE WITH ADL CARE PROVIDED NEEDED. ENCOURAGED PT TO ATTEND AND PARTICIPATE IN [facility] GROUPS AND ACTIVITIES. R- PT IS ALERT AND ORIENTED, RESPS EASY AND EVEN ON ROOM AIR. MOOD REMAINS IRRITABLE, ESPECIALLY IN REGARD TO STILL BEING IN THE HOSPITAL. PT IS PREOCCUPIED WITH GOING HOME AND UPSET THAT HE IS NOT RECIEVING PHONE CALLS FROM HIS FAMILY. PT DENIES SI/HI,INTENT OR PLAN. NO PARANOIA NOTED. PT CONTINUES TO DEMONSTRATE EVIDENCE OF VISUAL HALLUCINATIONS PT STATED TODAY THAT HE WAS SEEING BLACK SPIDERS CRAWLING ON A MALE PEER SITTING ACROSS THE TABLE FROM HIM. PT STATES TO STAFF "YOU GUYS BETTER GET THOSE BUGS OFF OF HIM BEFORE HE ENDS UP LIKE ME". REDIRECTION AND REASSURANCE PROVIDED. PT MEDICATION COMPLIANT WITH ENCOURAGEMENT. NO AGGRESSIVE BEHAVIORS DISPLAYED. FREQUENT REMINDERS PROVIDED FOR PT TO COMPLY WITH FALL RISK PRECAUTIONS D/T UNSTEADY GAIT. PT OFTEN GETS UP WITHOUT ASKING FOR HELP FIRST AND STATES "I CAN DO IT MYSELF!". EDUCATION PROVIDED RE: FALL RISK PRECAUTIONS. NO DISTRESS NOTED. P- PLAN TO CONTINUE CURRENT TREATMENT, CONTINUE TO MONITOR MOOD AND BEHAVIORS, PROVIDE APPROPRIATE REORIENTATION AND REDIRECTION NEEDED. CONTINUE TO ENCOURAGE MEDICATION COMPLIANCE WELL GROUP ATTENDANCE AND PARTICIPATION.
[2019-11-25 19:54] VITALS: BP 130/70
--- NOTE | 2019-11-25 22:03 | NUR ---
P-CONFUSION, ISOLATIVE I-REDIRECTION WITH 1:1 THERAPEUTIC INTERVENTIONS AND PRESENT REALITY. EDUCATE AND ENCOURAGE MEDICATION COMPLIANCE R-PATIENT MEDICATION COMPLIANT AT HS. PATIENT REFUSED NOURISHMENT BUT PROVIDED FLUIDS AT HS. PATIENT ISOLATIVE TO ROOM THIS SHIFT. PATIENT NOT INTERACTING WITH PEERS AND NURSING STAFF. PATIENT UPSET THAT HE CAN NOT GO HOME AT THIS TIME. PATIENT WITH NO HALLUCINATIONS OR DELUSION. PATIENT WITH NO HOMICIDAL OR SUICIDAL IDEATIONS. P-CONTINUE TO ENCOURAGE MEDICATION COMPLIANCE, CONTINUE TO PRESENT REALITY, ENCOURAGE GROUP THERAPY WHILE AWAKE
--- NOTE | 2019-11-26 06:28 | NUR ---
PATIENT SLEPT 7 HOURS OF INTERRUPTED SLEEP THROUGHOUT SHIFT. Q 15 MINUTE CHECKS MAINTAINE. 24 HR chart check completed.
[2019-11-26 07:57] VITALS: BP 144/58
--- NOTE | 2019-11-26 12:52 | NUR ---
PT ALERT TO PERSON AND PLACE. PT MED COMPLIANT WITHOUT DIFFICULTY, MED EDUCATION PROVIDED. PT CALM, MOOD IS STABLE. PT SAD AT TIMES WHEN ATTEMPTING TO CALL HIS FAMILY AND THEY DO NOT ANSWER OR CALL BACK STATING TO STAFF "I DON'T THINK THEY WANT ME ANYMORE, I DIDN'T DO ANYTHING WRONG." STAFF PROVIDED EMOTIONAL SUPPORT AND 1:1 FOR PT TO VOICE FEELINGS. NO HALLUCINATIONS OR DELUSIONS NOTED AT THIS TIME. PT DENIES ANY SUICIDAL THOUGHTS. PT UP TO A WHEELCHAIR AT THIS TIME, WILL WALK WITH WHEELED WALKER AT TIMES, GAIT UNSTEADY. PT CONTINENT OF BOWEL AND BLADDER. PLAN IS TO MONITOR PT BEHAVIORS ON Q15 MIN SAFETY CHECKS, ENCOURAGE MED COMPLIANCE AND PROVIDE MED EDUCATION, ENCOURAGE GROUP PARTICIPATION AND SOCIALZIATION, CONTINUE TO PROVIDE EMOTIONAL SUPPORT AND 1:1 FOR PT TO VOICE FEELINGS.
[2019-11-26] MEDS ORDERED: TRIHEXYPHENIDYL2 M3 PO (16:08)
[2019-11-26] MEDS ORDERED: QUETIAPINE FUMA50 M1 PO (16:08)
[2019-11-26] MEDS ORDERED: MIRTAZAPINE15 M2 PO (16:08)
[2019-11-26] MEDS ORDERED: QUETIAPINE FUM100 M3 PO (16:08)
[2019-11-26 20:00] VITALS: BP 140/54
--- NOTE | 2019-11-26 20:30 | NUR ---
Patient refusing to keep elbow protectors on and saying " I am not going to wear those things!"
--- NOTE | 2019-11-26 21:46 | NUR ---
Patient alert to person and place with confusion. Mood calm and cooperative but isolative to self. No overt s/s of responding to internal stimuli noted at this time. Patient compliant with HS medications without any difficulty. Attempted to provide emotional support and redirect/reorient but patient refusing to participate. Plan to continue to encourage medication compliance. Also continue to offer emotional support and redirect/reorient when needed/appropriate. Will continue to monitor moods/behaviors. Q 15 minute safety checks continued and maintained. See [facility] flowsheet for further documentation.
--- NOTE | 2019-11-27 05:28 | NUR ---
Patient slept approx. 8 hours throughout shift. Q 15 minute safety checks continued and maintained.
--- NOTE | 2019-11-27 06:03 | NUR ---
Patient again refuses to wear elbow protectors by saying "no,I will not wear those".
--- NOTE | 2019-11-27 07:10 | NUR ---
PHYSICAL THERAPY Patient seen this am for therapy visit and was supine in bed upon therapist arrival. Patient identified by name / and joined by OT assistant service manager for observation this session. Patient needed MAX v/c's to complete all treatment secondary to decreased focus on task. Patient transfers supine to sit EOB with MOD A x 2, requiring a minute or so of static EOB sit to collect himself. Patient was very anxious, constantly moving his arms / hands and random mumbling to himself. Patient completed sit to stand transfer, MIN A x 2, then ambulated 20'x 1, wh walker, MIN/CGA, demonstrating bouts of unsteady gait pattern, including decreased stride. Patient remains high risk for falls and returned to his w/c in activity room with body alarm, under [facility] staff Supervision. Will continue per POC as tolerated, total treatment time 14 minutes. Holland Lozano, FLYING TEACHER
--- NOTE | 2019-11-27 07:20 | NUR ---
OT NOTE Prior to coming to the floor spoke with nurse Ramon and reported that therapy was coming to treat this pt. Nurse gave approval. Pt was seen this A.M. 1:1 for 20 minute OT session with DYE MACHINE TENDER and nursing staff present for observation only. Upon arrival pt was supine in bed. Pt identified by name and and had no complaints at this time. Donned underpants, pants, and shirt with maxA. Pt's bed mobility throughout while rolling in bed for ADL care required modA. Pt transferred supine to sit EOB with maxA. Sit to stand completed from bed level with modA and use of w/w for UE support. Challenged pt's static standing tolerance needed for increased I in self care tasks and functional transfers, pt was able to tolerate aprox 3 minutes at a time before sitting due to fatigue. Pt was left sitting upright in the w/c in the dining irby under [facility] staff supervision and body alarm activated for safety. Continue with rec D/C plan to SNF. ZHANG Ventura
[2019-11-27 07:39] VITALS: BP 158/67
--- NOTE | 2019-11-27 08:30 | NUR ---
Treatment Plan meeting was held this a.m. with Dr. Chery, ARIANNE Blari, RN, AT, SW and Security Guards Dispatcher in attendance. Plan for discharge today. Pt. will return home with His Neice. Follow up appointment scheduled with Primary Care Provider Dr. Garcia 12/05/2019 12:00 p.m. Pt. refused Psychiatric Follow up and Also refused Home Health.
--- NOTE | 2019-11-27 08:34 | NUR ---
PT REFUSING DRESSING TO ELBOW, ELBOW PROTECTORS AND DISCHARGE WOUND PICTURES.
--- NOTE | 2019-11-27 08:37 | NUR ---
SPOKE WITH TATE JONES NP RE: PT DC FOR TODAY AND MEDICAL MEDS NEEDING COMPLETED.
--- NOTE | 2019-11-27 08:41 | NUR ---
PT ALERT TO PERSON AND PLACE, SOMETIMES YEAR. PT MED COMPLIANT WITHOUT DIFFICULTY, MED EDUCATION PROVIDED. PT CALM, MOOD IS STABLE. PT DENIES ANY HALLUCINATIONS OR DELUSIONS. PT DENIES ANY SUICIDAL THOUGHTS. PT UP TO A WHEELCHAIR, WILL AMBULATE SHORT DISTANCES WITH WHEELED WALKER, GAIT UNSTEADY. PT CONTINENT OF BOWEL AND BLADDER.SKIN TEAR REMAINS TO LEFT ELBOW, PT CONTINUES TO REFUSE DRESSING, ELBOW PROTECTORS AND DISCHARGE WOUND PHOTOS, STATING "THERE AIN'T NOTHING WRONG I DON'T NEED THAT STUFF." PLAN IS TO MONITOR PT BEHAVIORS ON Q15 MIN SAFETY CHECKS, ENCOURAGE MED COMPLIANCE AND PROVIDE MED EDUCATION, ENCOURAGE GROUP PARTICIPATION AND SOCIALIZATION, PROVIDE EMOTIONAL SUPPORT AND 1:1 FOR PT TO VOICE FEELINGS.
--- NOTE | 2019-11-27 11:05 | NUR ---
TATE JONES SOLE CONFORMING MACHINE OPERATOR ON UNIT TO ASSESS PT, UPDATE PROVIDED.
--- NOTE | 2019-11-27 11:43 | NUR ---
Spoke with Berenice at [place] [facility]. Provided with Updates and Discharge Plan for Pt. to return home with Pt. voicing Concerns about his Neice not making sure he receives his Medication. Advised Worker Berenice that [facility] is unable to assess Home Situation but there are concerns due to Pt. Functional Status with Ambulation and Providing ADL's. Reference #[id number].
--- NOTE | 2019-11-27 11:48 | NUR ---
AM GROUP PT WAS PRESENT FOR MORNING GROUP THERAPY. PT DECLINES ANY ACTIVITY OFFERED. PT WAS QUIET AND OBSERVANT AND EXHIBITED NO ADVERSE BEHAVIORS WHILE IN GROUP. PT IS SET TO BE DISCHARGED FROM THE UNIT THIS AFTERNOON.
--- NOTE | 2019-11-27 12:36 | NUR ---
SPEECH PATHOLOGY Patient was seen for treatment this pm during lunchtime meal to ensure safe tolerance due to recent diet upgrade. Patient was sitting upright in activity room with peers, alert, cooperative and anxious to go home today. Patient consumed 2 hamburgers and thin liquids by straw. Patient did well feeding himself today, with less tremors observed. He did not spill and drop foods as he had previously. At start of meal, patient was observed taking large bites and was reminded to take small bites/sips and chew thoroughly. He was compliant and demonstrated no overt difficulty with food or liquid. Recommend he remain on regular diet with finger foods as appropriate, and thin liquid, with monitoring during meals to ensure implementation of safety precautions of small bites/sips, chewing thoroughly and alternating liquid and solid. Plan is for discharge to home this date. No further services are warranted at this time. Thank you for this referral. It has been a pleasure taking part in this patient's care. SPARKLE SMITH MSCCC-GRADER MARKER
--- NOTE | 2019-11-27 13:01 | NUR ---
PT DISCHARGED TO HOME VIA PRIVATE CAR, PT ESCORTED OFF UNIT IN [facility] BY [facility] AND FAST FOOD SHIFT LEAD. PT BELONGINGS AND DC PAPERWORK SENT WITH PT.
--- NOTE | 2019-11-27 16:22 | NUR ---
OCCUPATIONAL THERAPY CO-SIGN I approve of the Occupational Therapy notes written above. RAVEN CALLEJAS OTR/Kelly
--- NOTE | 2019-11-28 07:15 | NUR ---
PHYSICAL THERAPY CO-SIGN I approve of the Physical Therapy notes written above. Angie Pope PT
== END 2019-11-27 13:00 | disposition home or self-care (01) | DRG 885 ==
LOC: ED 13:13 → 3N 16:21
PROVIDERS: Counselor Professional; Emergency Medicine; ADMIT Psychiatry & Neurology Psychiatry; ATTEND Psychiatry & Neurology Psychiatry
DX: F31.5 Bipolar disorder, current episode depressed, severe, with psychotic features (principal); R73.03 Prediabetes; M19.90 Unspecified osteoarthritis, unspecified site; F41.9 Anxiety disorder, unspecified; R00.1 Bradycardia, unspecified; I10 Essential (primary) hypertension; Z20.828 Contact with and (suspected) exposure to other viral communicable diseases; E78.5 Hyperlipidemia, unspecified; Z91.013 Allergy to seafood; Z88.8 Allergy status to other drugs, medicaments and biological substances; Z88.0 Allergy status to penicillin